=== PATIENT | male | born 1975 ===

== ENCOUNTER 2017-06-18 13:00 | Inpatient (IN) | payer MEDICAID, OTHER ==
[~2017-06-18] VITALS: Ht 180.3 cm; Wt 84.0 kg
[2017-06-18 13:15] VITALS: Ht 180.3 cm; Wt 84.0 kg
[2017-06-18] MEDS ORDERED: SOD CHLORIDE 0.9% 1,000 ML IV STA (13:15)
--- NOTE | 2017-06-18 14:06 | RADRPT ---
PROCEDURE: CT brain without contrast CLINICAL INDICATION: Altered mental status, status post fall TECHNIQUE: CT of the brain without contrast was performed on a multidetector CT scanner. One or mo re of the following dose reduction techniques were used: Automated exposure control, adjustment in m A and / or kV according to patient size, use of iterative reconstructive technique. CTDIvol = 45/44 mGy; DLP = 360/720 mGy-cm. COMPARISON: None available FINDINGS: No acute intracranial hemorrhage is identified. No extra-axial fluid collection is seen. There is no mass effect. No midline shift is identified. Ventricles and sulci are within normal limits for size and configuration. The density of the brain is unremarkable. Perez-white differentiation is preserved. Calvarium and skull base are intact. Mastoid air cells and imaged paranasal sinuses grossly clear. IMPRESSION: No evidence of acute intracranial pathology. RPTAT: HH .Ciro Agosto MD, MD Date Time Electronically viewed and signed by .Ciro Agosto MD, MD on 06/18/2017 14:06 .O/
[2017-06-18 14:16] LABS: ABNORMAL IP MESSAGE 1; HEMATOCRIT 30.5 % (42.0-52.0); MEAN CORPUSCULAR HGB CONC 32.8 g/dl (32.0-37.0); MEAN CORPUSCULAR VOLUME 88.4 fl (82.0-101.0); MEAN PLATELET VOLUME 10.4 fl (7.4-10.4); PLATELET COUNT 84 10^3/UL (140-415); POSITIVE DIFF @See below; RED BLOOD COUNT 3.45 10^6/ul (4.70-6.10); RED CELL DISTRIBUTION WIDTH 12.7 % (11.5-14.5); WHITE BLOOD COUNT 3.4 10^3/ul (4.8-10.8)
--- NOTE | 2017-06-18 14:17 | RADRPT ---
PROCEDURE: CT Cervical Spine. CLINICAL INDICATION: Altered mental status TECHNIQUE: A CT of the cervical spine was performed on a multidetector GE CT scanner utilizing hig h-resolution axial imaging from the skull base through the cervical thoracic junction. Sagittal, co bill, and multiplanar reformatted images were made. CTDI 22.36 mGy and DLP 635.76 mGy-cm. One of the following 3 dose reduction techniques were used during this CT examination: automated exp osure control; adjustment of the mA and /or kV according to patient size; or use of iterative recons truction technique COMPARISON: CT brain same date FINDINGS: There is straightening of the normal lordosis of the cervical spine. The prevertebral soft tissues a nd epiglottis are normal. Preservation of the vertebral body heights and intervertebral disk spaces are noted. No evidence for acute fractures or traumatic subluxations are present. The posterior e lements are intact and well aligned. No significant disk bulge or protrusion is seen. The central canal, subarticular recess and neural foramen are patent. IMPRESSION: 1. No acute fractures or traumatic subluxations. 2. Straightening of the normal cervical lordosis and correlate with muscle spasm. RPTAT: HDC .Liliam Reid MD, MD Date Time Electronically viewed and signed by .Liliam Reid MD, MD on 06/18/2017 14:16 .C/
[2017-06-18 14:28] LABS: ADD UMIC NO; UR ASCORBIC ACID NEGATIVE (NEGATIVE); UR BILIRUBIN (Dip) NEGATIVE (NEGATIVE); UR BLOOD (Dip) NEGATIVE (NEGATIVE); UR CLARITY CLEAR (CLEAR); UR COLOR YELLOW (YELLOW); UR GLUCOSE (Dip) 1+ mg/dL (NEGATIVE); UR KETONES (Dip) NEGATIVE (NEGATIVE); UR LEUKOCYTE ESTERASE (Dip) NEGATIVE Leu/ul (NEGATIVE); UR NITRITE (Dip) NEGATIVE (NEGATIVE); UR SPECIFIC GRAVITY (Dip) 1.006 (1.003-1.030); UR TOTAL PROTEIN (Dip) NEGATIVE (NEGATIVE); UR UROBILINOGEN (Dip) 2+ mg/dL (NEGATIVE)
--- NOTE | 2017-06-18 14:31 | RADRPT ---
PROCEDURE: Chest x-ray CLINICAL INDICATION: Altered level of consciousness TECHNIQUE: Chest single view COMPARISON: None FINDINGS: The heart is normal in size. The pulmonary vessels are normal in caliber. Lung volumes are low with accentuation lung markings. The costophrenic angles are sharp. The visualized bony thorax is unrem arkable. IMPRESSION: No acute cardiopulmonary disease. Low lung volumes RPTAT: HH .Robert Contreras MD, MD Date Time Electronically viewed and signed by .Robert Contreras MD, MD on 06/18/2017 14:30 .W/
--- NOTE | 2017-06-18 14:38 | ERA ---
ER Documentation Chief Complaint Date/Time DATE: 06/18/17 TIME: 14:31 Chief Complaint brought in by RA; ETOH intoxication HPI This is a 42-year-old male with a past medical history of diabetes, hypertension , hyperlipidemia, chronic daily alcohol abuse who is presenting with alcohol intoxication. He was found by bystanders and an ambulance was called. The patient is able to provide his name, and he knows that he is in a hospital, but he does not know the date. He is unable to provide specifics of today, but he does endorse drinking a lot of beer. He also endorses using cocaine recently. The patient is unsure if he could have hit his head or not, but he is not have a headache or vision changes right now. He does not have any chest pain or trouble breathing. He does not have any abdominal pain. He does endorse pain to his left hand. He has no focal deficits. ROS All systems reviewed and are negative except as per history of present illness. Allergies Allergies: Coded Allergies: Unknown: Unable to obtain (Unverified , 06/18/17) PMhx/Soc Medical and Surgical Hx: pt denies Surgical Hx Hx Cardiac Disorders: Yes (HTN, high cholesterol) Hx Psychiatric Problems: No Hx Miscellaneous Medical Probl: Yes (dm2, hepatitis) Hx Alcohol Use: Yes (daily+ today; unable to state how much) Hx Substance Use: Yes (cocaine history) Hx Tobacco Use: No Smoking Status: Unknown if ever smoked Physical Exam Vitals Vital Signs Date Time Temp Pulse Resp B/P Pulse Ox O2 Delivery O2 Flow Rate FiO2 06/18/17 20:11 98.2 103 18 116/73 96 Room Air 06/18/17 18:20 101 20 113/82 93 Room Air 2.0 06/18/17 18:01 99.0 102 16 141/89 96 Room Air 06/18/17 13:15 98.9 117 22 110/63 84 06/18/17 13:15 Nasal Cannula 3 Physical Exam Const: NAD Head: Atraumatic Eyes: Normal Conjunctiva ENT: Normal External Ears, Nose and Mouth. Neck: Full range of motion..~ No meningismus. Resp: Clear to auscultation bilaterally Cardio: Regular rate and rhythm, no murmurs Abd: Soft, non tender, non distended. Normal bowel sounds Skin: No petechiae or rashes Back: No midline or flank tenderness Ext: No cyanosis, edema and pain to the right wrist Neur: Sleeping but arousable, A&Ox2 to person and place, normal strength and sensation Psych: Slowed responses Result Diagram: 06/18/17 1345 06/18/17 1345 Results 24 hrs Laboratory Tests Test 06/18/17 13:45 06/18/17 17:29 White Blood Count 3.410^3/ul Red Blood Count 3.4510^6/ul Hemoglobin 10.0g/dl Hematocrit 30.5% Mean Corpuscular Volume 88.4fl Mean Corpuscular Hemoglobin 29.0pg Mean Corpuscular Hemoglobin Concent 32.8g/dl Red Cell Distribution Width 12.7% Platelet Count 8410^3/UL Mean Platelet Volume 10.4fl Neutrophils % % Segmented Neutrophils % (Manual) 45% Lymphocytes % % Lymphocytes % (Manual) 51% Monocytes % % Monocytes % (Manual) 4% Eosinophils % % Basophils % % Nucleated Red Blood Cells % 0.0/100WBC Neutrophils # (Manual) 10^3/ul Absolute Lymphocytes (Manual) 1.710^3/ul Lymphocytes # 10^3/ul Monocytes # 10^3/ul Absolute Monocytes (Manual) 0.110^3/ul Eosinophils # 10^3/ul Basophils # 10^3/ul Nucleated Red Blood Cells # 10^3/ul Thrombocytosis 1% Platelet Estimate NORMAL Urine Color YELLOW Urine Clarity CLEAR Urine pH 7.0 Urine Specific [place] 1.006 Urine Ketones NEGATIVEmg/dL Urine Nitrite NEGATIVEmg/dL Urine Bilirubin NEGATIVEmg/dL Urine Urobilinogen 2+mg/dL Urine Leukocyte Esterase NEGATIVELeu/ul Urine Hemoglobin NEGATIVEmg/dL Urine Glucose 1+mg/dL Urine Total Protein NEGATIVEmg/dl Sodium Level 151mmol/L Potassium Level 3.5mmol/L Chloride Level 109mmol/L Carbon Dioxide Level 24mmol/L Anion Gap 22 Blood Urea Nitrogen 4mg/dl Creatinine 0.49mg/dl Glucose Level 200mg/dl Calcium Level 8.2mg/dl Total Bilirubin 0.4mg/dl Direct Bilirubin 0.00mg/dl Indirect Bilirubin 0.4mg/dl Aspartate Amino Transf (AST/SGOT) 49IU/L Alanine Aminotransferase (ALT/SGPT) 39IU/L Alkaline Phosphatase 117IU/L Total Protein 7.7g/dl Albumin 3.1g/dl Globulin 4.60g/dl Albumin/Globulin Ratio 0.67 Salicylates Level < 1.0mg/dl Urine Opiates Screen Negative Acetaminophen Level < 10.0ug/ml Urine Barbiturates Negative Urine Amphetamines Screen Negative Urine Benzodiazepines Screen Negative Urine Cocaine Screen Negative Urine Cannabinoids Negative Ethyl Alcohol Level 450.0mg/dl Bedside Glucose 172mg/dL Current Medications Medications (Trade) Dose Ordered Sig/Justin Route PRN Reason Start Time Stop Time Status Last Admin Dose Admin Sodium Chloride (NS) 1,000 ml @ 1,000 mls/hr Q1H STAT IV 06/18/17 13:15 06/18/17 14:14 DC 06/18/17 14:27 Lorazepam (Ativan) 2 mg STK-MED ONCE .ROUTE 06/18/17 17:54 06/18/17 17:55 DC Ondansetron HCl (Zofran Inj) 4 mg BRIDGE ORDER PRN IV NAUSEA AND/OR VOMITING 06/18/17 19:30 06/19/17 19:29 Acetaminophen (Tylenol Tab) 650 mg ER BRIDGE PRN PO MILD PAIN/FEVER 06/18/17 19:30 06/19/17 19:29 Lorazepam (Ativan) 2 mg ONCE ONCE IV 06/18/17 20:30 06/18/17 20:31 DC 06/18/17 21:05 Procedures/MDM The patient's presenting with alcohol intoxication. He does endorse using multiple other medications as well. He does respond to commands, and he does not demonstrate any focal deficits. However, there is a questionable history of whether or not he could have fallen and hit his head. A workup will be performed. Patient's blood work is obtained and reviewed. The patient does have a mild leukopenia, but he is afebrile and I do not suspect an infection at this time. The patient's vital signs are stable. The patient's CMP demonstrates an elevated sodium at 151. It is otherwise unremarkable. The patient's urinalysis shows no signs of infection or hematuria. His UDS was negative. He does have an elevated alcohol level. The patient's CT of the head was read as follows: PROCEDURE: CT brain without contrast CLINICAL INDICATION: Altered mental status, status post fall FINDINGS: No acute intracranial hemorrhage is identified. No extra-axial fluid collection is seen. There is no mass effect. No midline shift is identified. Ventricles and sulci are within normal limits for size and configuration. The density of the brain is unremarkable. Perez-white differentiation is preserved. Calvarium and skull base are intact. Mastoid air cells and imaged paranasal sinuses grossly clear. IMPRESSION: No evidence of acute intracranial pathology. .Ciro Agosto MD, Date Time Electronically viewed and signed by .Ciro Agosto MD, on 06/18/2017 14:[address] of the cervical spine was read as follows: PROCEDURE: CT Cervical Spine. CLINICAL INDICATION: Altered mental status COMPARISON: CT brain same date FINDINGS: There is straightening of the normal lordosis of the cervical spine. The prevertebral soft tissues and epiglottis are normal. Preservation of the vertebral body heights and intervertebral disk spaces are noted. No evidence for acute fractures or traumatic subluxations are present. The posterior elements are intact and well aligned. No significant disk bulge or protrusion is seen. The central canal, subarticular recess and neural foramen are patent. IMPRESSION: 1. No acute fractures or traumatic subluxations. 2. Straightening of the normal cervical lordosis and correlate with muscle spasm. .Liliam Reid MD, Date Time Electronically viewed and signed by .Liliam Reid MD, on 06/18/2017 14: 16 The patient does not endorse any midline tenderness. He does indicate that he has mild right-sided paraspinal discomfort. This could correlate with muscle spasm. The patient's CT head and cervical spine is reassuring. The patient's chest x-ray is as follows: PROCEDURE: Chest x-ray CLINICAL INDICATION: Altered level of consciousness TECHNIQUE: Chest single view COMPARISON: None FINDINGS: The heart is normal in size. The pulmonary vessels are normal in caliber. Lung volumes are low with accentuation lung markings. The costophrenic angles are sharp. The visualized bony thorax is unremarkable. IMPRESSION: No acute cardiopulmonary disease. Low lung volumes .Robert Contreras MD, Date Time Electronically viewed and signed by .Robert Contreras MD, MD on 06/18/2017 14:30 He also had tenderness and swelling of his left hand. The xrays were unremarkable as follows: PROCEDURE: Left wrist radiographs. CLINICAL INDICATION: Left wrist pain. TECHNIQUE: Three views. Frontal, lateral, and oblique. COMPARISON: No prior studies are available for comparison. FINDINGS: There is no fracture or dislocation. The soft tissues are normal. Articular surfaces are intact. There is no lytic or blastic lesion. There is no radiopaque foreign body. IMPRESSION: 1. Normal images of the left wrist. .Epi Burden MD, Date Time Electronically viewed and signed by .Epi Burden MD, on 06/18/2017 20:25 Patient was given IV fluids in the emergency department. Unfortunately, while he was in the ER, he had a seizure. He was given 2 mg of Ativan which resolved the symptoms. However, he was postictal for 30min to one hour. He maintained his oral airway and does not require intubation. He ultimately returned to baseline. However, in the setting of alcohol abuse in addition to an elevated sodium, the decision was made to admit him to the hospital for further evaluation and management. Departure Diagnosis: Primary Impression: Alcoholic intoxication Qualified Code: F10.929 - Alcoholic intoxication with complication Additional Impressions: Seizure Hypernatremia Condition: Serious ANIVAL REEVES MD Jun 18, 2017 14:38
[2017-06-18 14:40] LABS: CANNABINOIDS Negative (NEGATIVE)
[2017-06-18 14:42] LABS: ALANINE AMINOTRANSFERASE 39 IU/L (13-69); ALBUMIN 3.1 g/dl (3.3-4.9); ALBUMIN/GLOBULIN RATIO 0.67; ALKALINE PHOSPHATASE 117 IU/L (42-121); ANION GAP 22 (8-16); ASPARTATE AMINO TRANSFERASE 49 IU/L (15-46); BARBITURATES Negative (NEGATIVE); BENZODIAZEPINES Negative (NEGATIVE); BILIRUBIN,INDIRECT 0.4 mg/dl (0-1.1); BILIRUBIN,TOTAL 0.4 mg/dl (0.2-1.3); BLOOD UREA NITROGEN 4 mg/dl (7-20); CALCIUM 8.2 mg/dl (8.4-10.2); CARBON DIOXIDE 24 mmol/L (21-31); CHLORIDE 109 mmol/L (97-110); COCAINE Negative (NEGATIVE); CREATININE 0.49 mg/dl (0.61-1.24); GLUCOSE 200 mg/dl (70-220); OPIATES Negative (NEGATIVE); POTASSIUM 3.5 mmol/L (3.5-5.1); SODIUM 151 mmol/L (135-144); TOTAL PROTEIN 7.7 g/dl (6.1-8.1)
[2017-06-18 14:43] LABS: ACETAMINOPHEN < 10.0 ug/ml (10.0-30.0); SALICYLATE < 1.0 mg/dl (5.0-30.0)
[2017-06-18 16:05] LABS: GIANT THROMBO% (M) 1 % (0-0); MONOCYTES % (M) 4 % (0-11); PLATELET ESTIMATE NORMAL
[2017-06-18] MEDS ORDERED: LORAZEPAM 2 MG INJ ONE (17:54)
[2017-06-18] MEDS ORDERED: ACETAMINOPHEN 325 MG TAB PO PRN (19:30)
[2017-06-18] MEDS ORDERED: ONDANSETRON 4 MG INJ IV PRN (19:30)
--- NOTE | 2017-06-18 20:26 | RADRPT ---
PROCEDURE: Left wrist radiographs. CLINICAL INDICATION: Left wrist pain. TECHNIQUE: Three views. Frontal, lateral, and oblique. COMPARISON: No prior studies are available for comparison. FINDINGS: There is no fracture or dislocation. The soft tissues are normal. Articular surfaces are intact. There is no lytic or blastic lesion. There is no radiopaque foreign body. IMPRESSION: 1. Normal images of the left wrist. RPTAT: QQ .Epi Burden MD, MD Date Time Electronically viewed and signed by .Epi Burden MD, on 06/18/2017 20:25 .R/
[2017-06-18] MEDS ORDERED: LORAZEPAM 2 MG INJ IV ONE (20:30)
[2017-06-19] VITALS (7 sets, daily range): BP systolic 124–127; BP diastolic 77–80; PULSE 90–101; RESP 20; TEMP 97.9
[2017-06-19] MEDS ORDERED: LORAZEPAM 2 MG INJ IV ONE (07:30)
[2017-06-19] MEDS ORDERED: ONDANSETRON 4 MG INJ IV PRN (08:30)
[2017-06-19] MEDS: SOD CHLORIDE 0.9% 1,000 ML IV SCH ×2 (08:30→16:50)
--- NOTE | 2017-06-19 09:37 | HP ---
DATE OF ADMISSION: 06/18/2017 PRESENTING COMPLAINT: Altered mental status. HISTORY OF PRESENT ILLNESS: The patient was brought in by ambulance after bystanders had called because he was found to be acutely intoxicated. When he came in, he was oriented only to himself and could not give a history. At this time, he is feeling much better. He knows where he is and he is able to say that he feels better. He does feel sick he says and he is quit shaky. He does not remember the circumstances that brought him to the hospital. He does note that he drinks a lot of alcohol and also smokes tobacco. Other than that, he has not other concerns. He had no chest pain. He has no shortness of breath. He had some pain in his left hand, was worked up with a wrist x- ray, which came back negative. REVIEW OF SYSTEMS: Twelve point review of system was done. Pertinent findings as noted. PAST MEDICAL HISTORY: Positive for: 1. Hypertension. 2. Diabetes mellitus. 3. Dyslipidemia. PAST SURGICAL HISTORY: Patient denies. ALLERGIES: NO KNOWN DRUG ALLERGIES. SOCIAL HISTORY: Patient continued heavy alcohol. Also smokes tobacco. Also, does cocaine use. FAMILY HISTORY: Noncontributory. REVIEW OF SYSTEMS: A 12 point review of system was done. Pertinent findings as noted in HPI. HOMES MEDICATIONS: These are not available at this time, but once available will be reviewed and reconciled. PHYSICAL EXAMINATION: VITAL SIGNS: Temperature 98.5, pulse 100, respirations 20, blood pressure 123/80, saturation 95 percent on oxygen nasal cannula 2 L a minute. GENERAL: At this time, the patient is alert and oriented. He is in no distress. Head is normocephalic. There is no evidence of trauma. Pupils are equal, round, reactive with no scleral jaundice. Mucous membranes moist. Posterior pharynx free of exudate. NECK: Supple. CHEST: Clear to auscultation. CARDIOVASCULAR: S1 and S2. No murmurs. ABDOMEN: Soft, nontender, nondistended. Normoactive bowel sounds. MUSCULOSKELETAL: Patient is having a lot of tremors and shaking. Other than that, he has no edema. SKIN: Devoid of rash or jaundice. LAB VALUES: His sodium is 151 when he came in. He had an anion gap of 22, BUN and creatinine within normal range. AST is 49. WBC count was 3.4, hemoglobin is 10. Other than that urine tox screen was negative. But his alcohol level is very elevated. IMAGING STUDIES: A chest x-ray showed no active cardiopulmonary disease. CT scan of the chest showed no acute fractures, but there was some cervical muscle spasm. Brain CT showed no acute intracranial pathology and a wrist x-ray was normal as well. ASSESSMENT: A 42-year-old male admitted for: 1. Acute alcoholic intoxication now with signs consents for possible withdrawal. 2. Pancytopenia secondary to chronic alcohol use. PLAN: Is aggressive hydration, benzodiazepine therapy, therapy and essentially when the patient feels more stable, I believe he will be stable for discharge. He has been counseled on the need to stop abusing alcohol, tobacco and drugs. We will have a social and human services assistant visit him and provide him with resources that may help with this. For prophylaxis, he will be on SCDs and PPI p.o. and we will also put in place fall precautions. Dictated By: Nolan Dickson MD /rupal/shoaib /Document#: [id number]
[2017-06-19] MEDS ORDERED: DEXTROSE 50% 50 ML SYRINGE IV PRN ×2 (10:30)
[2017-06-19] MEDS ORDERED: GLUCAGON 1 MG INJ IM PRN (10:30)
[2017-06-19] MEDS ORDERED: GLUCOSE GEL 15 GRAM TUBE PO PRN ×2 (10:30)
[2017-06-19] MEDS ORDERED: GLUCOSE GEL 15 GRAM TUBE BUCCAL PRN (10:30)
[2017-06-19 10:54] LABS: CHOL/HDL RATIO 3.7 RATIO; CHOLESTEROL 138 mg/dl (100-200); HDL CHOLESTEROL 37 mg/dl (27-67); MAGNESIUM 1.6 mg/dl (1.7-2.5); PHOSPHORUS 3.9 mg/dl (2.5-4.9); TRIGLYCERIDES 120 mg/dl (0-149)
[2017-06-19 10:59] LABS: INR 1.49; PROTIME 18.1 Sec (12.2-14.2); PT RATIO 1.4
[2017-06-19 11:00] LABS: PARTIAL THROMBOPLASTIN TIME 37.1 Sec (25.0-35.0)
[2017-06-19] MEDS: CHLORDIAZEPOXIDE 25 MG CAP PO SCH ×3 (11:32→21:47)
[2017-06-19] MEDS: MULTIVITAMINS 10 ML, THIAMINE 100 MG, FOLIC ACID 1 MG in SOD CHLORIDE 0.9% 1,000 ML IVPB SCH (11:32)
[2017-06-19 11:43] LABS: HEPATITIS B CORE ANTIBODY NEGATIVE (NEGATIVE)
[2017-06-19] MEDS: INSULIN ASPART [NOVOLOG] 3 ML PEN SC SCH ×3 (12:00→21:00)
[2017-06-19] MEDS: LORAZEPAM 2 MG INJ IV PRN (14:09)
--- NOTE | 2017-06-19 18:36 | PN ---
Date/Time of Note Date/Time of Note DATE: 06/19/17 TIME: 18:35 Assessment/Plan VTE Prophylaxis VTE Prophylaxis Intervention: contraindicated VTE Contraindication Reason: blood coagulation disorder Assessment/Plan Chief Complaint/Hosp Course Objective: Events noted Objective: Vital signs stable No pallor icterus Regular Clear Benign No edema Assessment and plan 1. Acute alcoholic intoxication/possible withdrawal; stable continue fluids Ativan B1 Pepcid. 2. Alcohol abuse. Social service assistance appreciated 3. Depression 4. Alcohol associated bone marrow suppression 5. Chronic diabetes/dyslipidemia/hypertension/metabolic syndrome 6. Tobacco abuse Problems: Exam/Review of Systems Vital Signs Vitals Vital Signs Date Time Temp Pulse Resp B/P Pulse Ox O2 Delivery O2 Flow Rate FiO2 06/19/17 16:00 90 06/19/17 13:25 98.3 20 127/80 97 Room Air 06/19/17 08:00 2.0 Results Result Diagram: 06/18/17 1345 06/18/17 1345 Results 24 hrs Laboratory Tests Test 06/19/17 07:32 06/19/17 10:04 06/19/17 13:21 06/19/17 18:08 Bedside Glucose 135 172 141 Prothrombin Time 18.1 H Prothrombin Time Ratio 1.4 INR International Normalized Ratio 1.49 Activated Partial Thromboplast Time 37.1 H Hemoglobin A1c 8.4 H Lactic Acid Level 3.3 *H Phosphorus Level 3.9 Magnesium Level 1.6 L Triglycerides Level 120 Cholesterol Level 138 LDL Cholesterol, Calculated 77 HDL Cholesterol 37 Cholesterol/HDL Ratio 3.7 Hepatitis B Surface Antibody NEGATIVE Hepatitis B Core Total Antibody NEGATIVE Hepatitis C Antibody NEGATIVE Medications Medications Current Medications Chlordiazepoxide 25 mg 25 mg TID PO Last administered on 06/19/17 14:49; Admin Dose 25 MG; Start 06/19/17 at 09:00 Multivitamins 10 ml/Thiamine HCl 100 mg/Folic Acid 1 mg/Sodium Chloride 1,011.2 ml @ 125 mls/ hr DAILY@09 IVPB Last administered on 06/19/17 11:32; Admin Dose 125 MLS/HR; Start 06/19/17 at 11:00 Sodium Chloride (NS) 1,000 ml @ 125 mls/hr Q8H IV Last administered on 16:50; Admin Dose 125 MLS/HR; Start 06/19/17 at 08:30 Lorazepam (Ativan) 1 mg Q6H PRN IV agitation Last administered on 06/19/17t 14: 09; Admin Dose 1 MG; Start 06/19/17 at 08:30 Pantoprazole (Protonix Tab) 40 mg DAILY@06 PO ; Start 06/20/17 at 06:00 Ondansetron HCl (Zofran Inj) 4 mg Q6H PRN IV NAUSEA AND/OR VOMITING; Start at 08:30 Diagnostic Test (Pha) (Accu-Chek) 1 ea 02 XX ; Start 06/20/17 at 02:00 Miscellaneous Information 1 ea NOTE XX ; Start 06/19/17 at 10:30 Glucose (Glutose) 15 gm Q15M PRN PO DECREASED GLUCOSE; Start 06/19/17 at 10:30 Glucose (Glutose) 22.5 gm Q15M PRN PO DECREASED GLUCOSE; Start 06/19/17 at 10: 30 Dextrose (D50w Syringe) 25 ml Q15M PRN IV DECREASED GLUCOSE; Start 06/19/17 at 10:30 Dextrose (D50w Syringe) 50 ml Q15M PRN IV DECREASED GLUCOSE; Start 06/19/17 at 10:30 Glucagon (Glucagen) 1 mg Q15M PRN IM DECREASED GLUCOSE; Start 06/19/17 at 10:30 Glucose (Glutose) 15 gm Q15M PRN BUCCAL DECREASED GLUCOSE; Start 06/19/17 at 10 :30 EDGAR MALLOY MD Jun 19, 2017 18:36
[2017-06-19] MEDS ORDERED: MAGNESIUM SULFATE 3 GM in SOD CHLORIDE 0.9% 100 ML IVPB ONE (19:00)
[2017-06-19] MEDS ORDERED: LORAZEPAM 2 MG INJ IM PRN (19:30)
[2017-06-20] VITALS (11 sets, daily range): BP systolic 119–139; BP diastolic 70–81; PULSE 83–100; RESP 17–19
[2017-06-20] MEDS: LORAZEPAM 0.5 MG TAB PO SCH ×4 (00:01→21:00)
[2017-06-20] MEDS: SOD CHLORIDE 0.9% 1,000 ML IV SCH ×4 (00:01→21:00)
[2017-06-20] MEDS: ACCU-CHEK XX SCH (00:25)
[2017-06-20] MEDS: PANTOPRAZOLE (EC) 40 MG TAB PO SCH (06:24)
[2017-06-20 07:42] LABS: ABNORMAL IP MESSAGE 1; BASOPHILS % 0.8 % (0.0-2.0); EOSINOPHILS % 0.8 % (0.0-7.0); HEMATOCRIT 30.6 % (42.0-52.0); HEMOGLOBIN 10.3 g/dl (14.0-18.0); LYMPHOCYTES # 0.9 10^3/ul (0.8-2.9); LYMPHOCYTES % 37.2 % (15.0-51.0); MEAN CORPUSCULAR HEMOGLOBIN 29.9 pg (29.0-33.0); MEAN CORPUSCULAR HGB CONC 33.7 g/dl (32.0-37.0); MONOCYTE # 0.3 10^3/ul (0.3-0.9); MONOCYTES % 10.3 % (0.0-11.0); NEUTROPHILS % 50.5 % (39.0-77.0); POSITIVE DIFF @See below; RED BLOOD COUNT 3.44 10^6/ul (4.70-6.10); RED CELL DISTRIBUTION WIDTH 12.5 % (11.5-14.5); WHITE BLOOD COUNT 2.5 10^3/ul (4.8-10.8)
[2017-06-20 07:53] LABS: PLATELET COUNT 80 10^3/UL (140-415)
[2017-06-20] MEDS: INSULIN ASPART [NOVOLOG] 3 ML PEN SC SCH ×4 (07:55→20:59)
[2017-06-20 08:06] LABS: INR 1.49; PROTIME 18.1 Sec (12.2-14.2); PT RATIO 1.4
[2017-06-20 08:22] LABS: ALBUMIN 2.8 g/dl (3.3-4.9); ALBUMIN/GLOBULIN RATIO 0.65; BILIRUBIN,INDIRECT 1.1 mg/dl (0-1.1); BILIRUBIN,TOTAL 1.1 mg/dl (0.2-1.3); CREATININE 0.42 mg/dl (0.61-1.24); POTASSIUM 3.5 mmol/L (3.5-5.1); TOTAL PROTEIN 7.1 g/dl (6.1-8.1)
[2017-06-20 08:23] LABS: MAGNESIUM 1.7 mg/dl (1.7-2.5)
[2017-06-20 08:25] LABS: TROPONIN-I < 0.012 ng/ml (0.00-0.12)
[2017-06-20] MEDS: MULTIVITAMINS 10 ML, THIAMINE 100 MG, FOLIC ACID 1 MG in SOD CHLORIDE 0.9% 1,000 ML IVPB SCH (10:14)
[2017-06-20] MEDS: LORAZEPAM 2 MG INJ IV PRN (10:14)
[2017-06-20] MEDS: CHLORDIAZEPOXIDE 25 MG CAP PO SCH ×3 (10:14→20:59)
[2017-06-20] MEDS: NICOTINE (14 MG/24 HR) PATCH TRANSDERM SCH (10:15)
--- NOTE | 2017-06-20 12:44 | PN ---
Date/Time of Note Date/Time of Note DATE: 06/20/17 TIME: 12:42 Assessment/Plan VTE Prophylaxis VTE Prophylaxis Intervention: LMWH Lines/Catheters IV Catheter Type (from Nrs): Peripheral IV Urinary Cath still in place: No Assessment/Plan Chief Complaint/Hosp Course subjective: 06/19: Events noted 06/20: No dyspnea nausea vomiting tongue bite seizure. Bilateral heel pain without any known aggravating or relieving factors. Denies any injury. O: Vss/sr No pallor/ icterus Reg Clear Benign No edema A/P 1. Acute alcoholic intoxication/possible withdrawal; stable cont fluids Ativan B1 Pepcid. 2. Alcohol abuse. Social service assistance appreciated 3. Depression 4. Alcohol associated bone marrow suppression 5. Chronic diabetes(8.4) /dyslipidemia/hypertension/metabolic syndrome 6. Tobacco abuse Problems: Exam/Review of Systems Vital Signs Vitals Vital Signs Date Time Temp Pulse Resp B/P Pulse Ox O2 Delivery O2 Flow Rate FiO2 06/20/17 12:15 85 06/20/17 11:03 98.6 18 119/75 75 06/20/17 07:30 Nasal Cannula 2.0 Intake and Output 06/19/17 06/19/17 06/20/17 14:59 22:59 06:59 Intake Total 1700 ml Output Total 500 ml Balance -500 ml 1700 ml Results Result Diagram: 06/20/17 0649 06/20/17 0649 Results 24 hrs Laboratory Tests Test 06/19/17 13:21 06/19/17 18:08 06/19/17 21:40 06/20/17 06:49 Bedside Glucose 172 141 175 White Blood Count 2.5 #L Red Blood Count 3.44 L Hemoglobin 10.3 L Hematocrit 30.6 L Mean Corpuscular Volume 89.0 Mean Corpuscular Hemoglobin 29.9 Mean Corpuscular Hemoglobin Concent 33.7 Red Cell Distribution Width 12.5 Platelet Count 80 L Mean Platelet Volume 12.0 H Neutrophils % 50.5 Lymphocytes % 37.2 Monocytes % 10.3 Eosinophils % 0.8 Basophils % 0.8 Nucleated Red Blood Cells % 0.0 Neutrophils # (Manual) 1.3 L Lymphocytes # 0.9 Monocytes # 0.3 Eosinophils # 0.0 Basophils # 0.0 Nucleated Red Blood Cells # 0.0 Prothrombin Time 18.1 H Prothrombin Time Ratio 1.4 INR International Normalized Ratio 1.49 Sodium Level 144 Potassium Level 3.5 Chloride Level 109 Carbon Dioxide Level 23 Anion Gap 16 Blood Urea Nitrogen 5 L Creatinine 0.42 L Glucose Level 111 # Calcium Level 8.0 L Phosphorus Level 4.0 Magnesium Level 1.7 Total Bilirubin 1.1 Direct Bilirubin 0.00 Indirect Bilirubin 1.1 Aspartate Amino Transf (AST/SGOT) 47 H Alanine Aminotransferase (ALT/SGPT) 30 Alkaline Phosphatase 108 Troponin I < 0.012 Total Protein 7.1 Albumin 2.8 L Globulin 4.30 H Albumin/Globulin Ratio 0.65 Test 06/20/17 08:07 06/20/17 12:39 Bedside Glucose 115 147 Medications Medications Current Medications Multivitamins 10 ml/Thiamine HCl 100 mg/Folic Acid 1 mg/Sodium Chloride 1,011.2 ml @ 125 mls/ hr DAILY@09 IVPB Last administered on 06/20/17 10:14; Admin Dose 125 MLS/HR; Start 06/19/17 at 11:00 Sodium Chloride (NS) 1,000 ml @ 125 mls/hr Q8H IV Last administered on 00:01; Admin Dose 125 MLS/HR; Start 06/19/17 at 08:30 Lorazepam (Ativan) 1 mg Q6H PRN IV agitation Last administered on 06/20/17 10: 14; Admin Dose 1 MG; Start 06/19/17 at 08:30 Pantoprazole (Protonix Tab) 40 mg DAILY@06 PO Last administered on 06/20/17 06 :24; Admin Dose 40 MG; Start 06/20/17 at 06:00 Ondansetron HCl (Zofran Inj) 4 mg Q6H PRN IV NAUSEA AND/OR VOMITING; Start at 08:30 Diagnostic Test (Pha) (Accu-Chek) 1 ea 02 XX ; Start 06/20/17 at 02:00 Miscellaneous Information 1 ea NOTE XX ; Start 06/19/17 at 10:30 Glucose (Glutose) 15 gm Q15M PRN PO DECREASED GLUCOSE; Start 06/19/17 at 10:30 Glucose (Glutose) 22.5 gm Q15M PRN PO DECREASED GLUCOSE; Start 06/19/17 at 10: 30 Dextrose (D50w Syringe) 25 ml Q15M PRN IV DECREASED GLUCOSE; Start 06/19/17 at 10:30 Dextrose (D50w Syringe) 50 ml Q15M PRN IV DECREASED GLUCOSE; Start 06/19/17 at 10:30 Glucagon (Glucagen) 1 mg Q15M PRN IM DECREASED GLUCOSE; Start 06/19/17 at 10:30 Glucose (Glutose) 15 gm Q15M PRN BUCCAL DECREASED GLUCOSE; Start 06/19/17 at 10 :30 Nicotine (Nicoderm 14 Mg/ 24hr) 1 patch DAILY TRANSDERM Last administered on 10:15; Admin Dose 1 PATCH; Start 06/20/17 at 09:00 Lorazepam (Ativan) 1 mg Q8 PO Last administered on 06/20/17 06:24; Admin Dose 1 MG; Start 06/19/17 at 22:00 Lorazepam (Ativan) 1 mg Q1H PRN IM ETOH WITHDRAWAL SYMPTOMS Last administered on 06/19/17 20:18; Admin Dose 1 MG; Start 06/19/17 at 19:30; Stop 06/22/17 at 19:00 Chlordiazepoxide (Librium) 50 mg TID PO Last administered on 06/20/17 10:14; Admin Dose 50 MG; Start 06/19/17 at 21:00; Stop 06/22/17 at 19:00 EDGAR MALLOY MD Jun 20, 2017 12:44
[2017-06-20] MEDS: POTASSIUM CHLORIDE 20 MEQ POWDER FOR ORAL SOLN PO SCH (13:54)
[2017-06-20] MEDS: GABAPENTIN 100 MG CAP PO SCH ×2 (13:54→20:58)
[2017-06-21] VITALS (11 sets, daily range): BP systolic 109–123; BP diastolic 66–82; PULSE 92–100; RESP 17–20
[2017-06-21] MEDS ORDERED: ACETAMINOPHEN 325 MG TAB PO PRN (02:00)
[2017-06-21] MEDS: ACCU-CHEK XX SCH (02:00)
[2017-06-21] MEDS: PANTOPRAZOLE (EC) 40 MG TAB PO SCH (06:25)
[2017-06-21] MEDS: LORAZEPAM 0.5 MG TAB PO SCH ×3 (06:25→22:34)
[2017-06-21] MEDS: INSULIN ASPART [NOVOLOG] 3 ML PEN SC SCH ×4 (08:16→20:33)
[2017-06-21] MEDS: SOD CHLORIDE 0.9% 1,000 ML IV SCH ×2 (09:12→16:30)
[2017-06-21] MEDS: GABAPENTIN 100 MG CAP PO SCH ×3 (09:13→20:34)
[2017-06-21] MEDS: MULTIVITAMINS 10 ML, THIAMINE 100 MG, FOLIC ACID 1 MG in SOD CHLORIDE 0.9% 1,000 ML IVPB SCH (09:13)
[2017-06-21] MEDS: NICOTINE (14 MG/24 HR) PATCH TRANSDERM SCH (09:13)
[2017-06-21] MEDS: POTASSIUM CHLORIDE 20 MEQ POWDER FOR ORAL SOLN PO SCH (09:13)
[2017-06-21] MEDS: CHLORDIAZEPOXIDE 25 MG CAP PO SCH ×3 (09:13→20:34)
--- NOTE | 2017-06-21 14:04 | PN ---
Date/Time of Note Date/Time of Note DATE: 06/21/17 TIME: 14:03 Assessment/Plan VTE Prophylaxis VTE Prophylaxis Intervention: LMWH Lines/Catheters IV Catheter Type (from Nrs): Peripheral IV Urinary Cath still in place: No Assessment/Plan Chief Complaint/Hosp Course s: 06/19: Events noted 06/20: No dyspnea nausea vomiting tongue bite seizure. Bilateral heel pain without any known aggravating or relieving factors. Denies any injury. 06/21: No events. Anticipate discharge tomorrow. O: Vss/sr No pallor Reg Clear Benign No edema A/P 1. Acute alcoholic intoxication/possible withdrawal; stable, cont fluids Ativan B1 Pepcid. 2. Alcohol abuse. Social service assistance appreciated. Anticipate discharge . 3. Depression 4. Alcohol associated bone marrow suppression 5. Chronic diabetes(8.4) /dyslipidemia/hypertension/metabolic syndrome 6. Tobacco abuse? Problems: Exam/Review of Systems Vital Signs Vitals Vital Signs Date Time Temp Pulse Resp B/P Pulse Ox O2 Delivery O2 Flow Rate FiO2 06/21/17 12:34 96 06/21/17 12:06 98.6 18 119/81 95 06/20/17 07:30 Nasal Cannula 2.0 Intake and Output 06/20/17 06/20/17 06/21/17 15:00 23:00 07:00 Intake Total 1000 ml 1750 ml Output Total 2000 ml Balance 1000 ml -250 ml Results Result Diagram: 06/20/17 0649 06/20/17 0649 Results 24 hrs Laboratory Tests Test 06/20/17 17:37 06/20/17 20:53 06/21/17 08:13 06/21/17 11:34 Bedside Glucose 125 153 147 201 Medications Medications Current Medications Multivitamins 10 ml/Thiamine HCl 100 mg/Folic Acid 1 mg/Sodium Chloride 1,011.2 ml @ 125 mls/ hr DAILY@09 IVPB Last administered on 06/21/17 09:13; Admin Dose 125 MLS/HR; Start 06/19/17 at 11:00 Sodium Chloride (NS) 1,000 ml @ 125 mls/hr Q8H IV Last administered on 09:12; Admin Dose 125 MLS/HR; Start 06/19/17 at 08:30 Lorazepam (Ativan) 1 mg Q6H PRN IV agitation Last administered on 06/20/17 10: 14; Admin Dose 1 MG; Start 06/19/17 at 08:30 Pantoprazole (Protonix Tab) 40 mg DAILY@06 PO Last administered on 06/21/17 06 :25; Admin Dose 40 MG; Start 06/20/17 at 06:00 Ondansetron HCl (Zofran Inj) 4 mg Q6H PRN IV NAUSEA AND/OR VOMITING; Start at 08:30 Diagnostic Test (Pha) (Accu-Chek) 1 ea 02 XX ; Start 06/20/17 at 02:00 Miscellaneous Information 1 ea NOTE XX ; Start 06/19/17 at 10:30 Glucose (Glutose) 15 gm Q15M PRN PO DECREASED GLUCOSE; Start 06/19/17 at 10:30 Glucose (Glutose) 22.5 gm Q15M PRN PO DECREASED GLUCOSE; Start 06/19/17 at 10: 30 Dextrose (D50w Syringe) 25 ml Q15M PRN IV DECREASED GLUCOSE; Start 06/19/17 at 10:30 Dextrose (D50w Syringe) 50 ml Q15M PRN IV DECREASED GLUCOSE; Start 06/19/17 at 10:30 Glucagon (Glucagen) 1 mg Q15M PRN IM DECREASED GLUCOSE; Start 06/19/17 at 10:30 Glucose (Glutose) 15 gm Q15M PRN BUCCAL DECREASED GLUCOSE; Start 06/19/17 at 10 :30 Nicotine (Nicoderm 14 Mg/ 24hr) 1 patch DAILY TRANSDERM Last administered on 09:13; Admin Dose 1 PATCH; Start 06/20/17 at 09:00 Lorazepam (Ativan) 1 mg Q1H PRN IM ETOH WITHDRAWAL SYMPTOMS Last administered on 06/19/17 20:18; Admin Dose 1 MG; Start 06/19/17 at 19:30; Stop 06/22/17 at 19:00 Chlordiazepoxide (Librium) 50 mg TID PO Last administered on 06/21/17 13:55; Admin Dose 50 MG; Start 06/19/17 at 21:00; Stop 06/22/17 at 19:00 Potassium Chloride (Potassium Chloride Pwd/Soln) 40 meq DAILY PO Last administered on 06/21/17 09:13; Admin Dose 40 MEQ; Start 06/20/17 at 13:00 Gabapentin (Neurontin) 100 mg TID PO Last administered on 06/21/17 13:55; Admin Dose 100 MG; Start 06/20/17 at 13:00 Lorazepam (Ativan) 2 mg Q8 PO Last administered on 06/21/17 13:55; Admin Dose 2 MG; Start 06/20/17 at 14:00 Acetaminophen (Tylenol Tab) 650 mg Q6H PRN PO PAIN AND OR ELEVATED TEMP; Start 06/21/17 at 02:00 EDGAR MALLOY MD Jun 21, 2017 14:04
[2017-06-21 14:45] LABS: ABNORMAL IP MESSAGE 1; BASOPHILS % 0.4 % (0.0-2.0); EOSINOPHILS # 0.1 10^3/ul (0.0-0.5); EOSINOPHILS % 1.8 % (0.0-7.0); HEMATOCRIT 31.2 % (42.0-52.0); HEMOGLOBIN 10.5 g/dl (14.0-18.0); LYMPHOCYTES # 0.8 10^3/ul (0.8-2.9); LYMPHOCYTES % 30.1 % (15.0-51.0); MEAN CORPUSCULAR HEMOGLOBIN 29.5 pg (29.0-33.0); MEAN CORPUSCULAR HGB CONC 33.7 g/dl (32.0-37.0); MEAN CORPUSCULAR VOLUME 87.6 fl (82.0-101.0); MEAN PLATELET VOLUME 11.8 fl (7.4-10.4); MONOCYTE # 0.2 10^3/ul (0.3-0.9); MONOCYTES % 8.6 % (0.0-11.0); NEUTROPHILS % 58.4 % (39.0-77.0); PLATELET COUNT 60 10^3/UL (140-415); POSITIVE DIFF @See below; RED BLOOD COUNT 3.56 10^6/ul (4.70-6.10); RED CELL DISTRIBUTION WIDTH 12.4 % (11.5-14.5); WHITE BLOOD COUNT 2.8 10^3/ul (4.8-10.8)
[2017-06-21 15:04] LABS: ALBUMIN 2.7 g/dl (3.3-4.9); ALBUMIN/GLOBULIN RATIO 0.6; BILIRUBIN,INDIRECT 0.6 mg/dl (0-1.1); BILIRUBIN,TOTAL 0.6 mg/dl (0.2-1.3); CALCIUM 8.5 mg/dl (8.4-10.2); CREATININE 0.42 mg/dl (0.61-1.24); POTASSIUM 3.8 mmol/L (3.5-5.1); TOTAL PROTEIN 7.2 g/dl (6.1-8.1)
--- NOTE | 2017-06-21 16:22 | PDOCDIS ---
Discharge Instructions DIAGNOSIS Discharge Diagnosis anxiety/ depression CONDITION Patient Condition: Stable HOME CARE INSTRUCTIONS: Special Diet: Diabetic diet ACTIVITY: Activity Restrictions: Slowly Increase Activity Do not Drive FOLLOW UP/APPOINTMENTS Follow-up Plan primary 1wk EDGAR MALLOY MD Jun 21, 2017 16:22
[2017-06-21] MEDS ORDERED: GABA100C14 PO (16:26)
[2017-06-21] MEDS ORDERED: THIA100T10 PO (16:26)
[2017-06-21] MEDS ORDERED: POTA20PA23 PO (16:26)
--- NOTE | 2017-06-21 16:29 | DS ---
Date/Time of Note Date/Time of Note DATE: 06/21/17 TIME: 16:26 Discharge Summary Admission/Discharge Info Admit Date/Time Jun 18, 2017 at 19:16 Discharge Date/Time Discharge Diagnosis anxiety/ depression Patient Condition: Stable Consults none Procedures none Hx of Present Illness Admitted with alcohol intoxication depression. Seen by social service. Offered placement as he is homeless. Ruled out for arrhythmias, no evidence of seizure. Has no ideation. Appreciate social service assistance. Not sure if he wants to entertain placement options. Probably will go home/ back to his car. Presently stable and fit for discharge. Hospital Course S: 06/19: Events noted 06/20: No dyspnea nausea vomiting tongue bite seizure. Bilateral heel pain without any known aggravating or relieving factors. Denies any injury. 06/21: No events. Anticipate discharge tomorrow. O: Vss/sr No pallor Reg Clear Benign No edema A/P 1. Acute alcoholic intoxication/possible withdrawal; stable, cont fluids Ativan B1 Pepcid. 2. Alcohol abuse. Social service assistance appreciated. Anticipate discharge . 3. Depression 4. Alcohol associated bone marrow suppression 5. Chronic diabetes(8.4) /dyslipidemia/hypertension/metabolic syndrome 6. Tobacco abuse? Home Meds Active Scripts Thiamine* (Thiamine*) 100 Mg Tablet, 100 MG PO DAILY for 30 Days, #30 BOX 2 Refills Prov:EDGAR MALLOY MD 06/21/17 Potassium Chloride (Potassium Chloride) 20 Meq Packet, 40 MEQ PO DAILY for 5 Days, #5 PACKET Prov:EDGAR MALLOY MD 06/21/17 Gabapentin* (Gabapentin*) 100 Mg Capsule, 100 MG PO TID for 10 Days, #30 CAP 1 Refill leg foot pains Prov:EDGAR MALLOY MD 06/21/17 Primary Care Provider Care Physician No Primary Pending Labs Laboratory Tests Test 06/20/17 17:37 06/20/17 20:53 06/21/17 08:13 06/21/17 11:34 Bedside Glucose 125mg/dL (70-220) 153mg/dL (70-220) 147mg/dL (70-220) 201mg/dL (70-220) Test 06/21/17 14:20 White Blood Count 2.810^3/ul (4.8-10.8) Red Blood Count 3.5610^6/ul (4.70-6.10) Hemoglobin 10.5g/dl (14.0-18.0) Hematocrit 31.2% (42.0-52.0) Mean Corpuscular Volume 87.6fl (82.0-101.0) Mean Corpuscular Hemoglobin 29.5pg (29.0-33.0) Mean Corpuscular Hemoglobin Concent 33.7g/dl (32.0-37.0) Red Cell Distribution Width 12.4% (11.5-14.5) Platelet Count 6010^3/UL (140-415) Mean Platelet Volume 11.8fl (7.4-10.4) Neutrophils % 58.4% (39.0-77.0) Lymphocytes % 30.1% (15.0-51.0) Monocytes % 8.6% (0.0-11.0) Eosinophils % 1.8% (0.0-7.0) Basophils % 0.4% (0.0-2.0) Nucleated Red Blood Cells % 0.0/100WBC (0.0-0.0) Neutrophils # (Manual) 1.610^3/ul (1.7-7.5) Lymphocytes # 0.810^3/ul (0.8-2.9) Monocytes # 0.210^3/ul (0.3-0.9) Eosinophils # 0.110^3/ul (0.0-0.5) Basophils # 0.010^3/ul (0.0-0.1) Nucleated Red Blood Cells # 0.010^3/ul (0.0-0.0) Sodium Level 140mmol/L (135-144) Potassium Level 3.8mmol/L (3.5-5.1) Chloride Level 107mmol/L (97-110) Carbon Dioxide Level 23mmol/L (21-31) Anion Gap 14 (8-16) Blood Urea Nitrogen 3mg/dl (7-20) Creatinine 0.42mg/dl (0.61-1.24) Glucose Level 202mg/dl (70-220) Calcium Level 8.5mg/dl (8.4-10.2) Total Bilirubin 0.6mg/dl (0.2-1.3) Direct Bilirubin 0.00mg/dl (0.00-0.20) Indirect Bilirubin 0.6mg/dl (0-1.1) Aspartate Amino Transf (AST/SGOT) 36IU/L (15-46) Alanine Aminotransferase (ALT/SGPT) 26IU/L (13-69) Alkaline Phosphatase 125IU/L (42-121) Total Protein 7.2g/dl (6.1-8.1) Albumin 2.7g/dl (3.3-4.9) Globulin 4.50g/dl (1.3-3.2) Albumin/Globulin Ratio 0.60 EDGAR MALLOY MD Jun 21, 2017 16:29
[2017-06-21] MEDS ORDERED: LORAZEPAM 2 MG INJ IM PRN (21:00)
[2017-06-22] MEDS: SOD CHLORIDE 0.9% 1,000 ML IV SCH ×3 (00:29→17:28)
[2017-06-22] MEDS: ACCU-CHEK XX SCH (02:00)
[2017-06-22] MEDS: PANTOPRAZOLE (EC) 40 MG TAB PO SCH (06:12)
[2017-06-22] MEDS: LORAZEPAM 0.5 MG TAB PO SCH ×3 (06:12→21:17)
[2017-06-22 07:20] VITALS: BP 118/81; RESP 20
[2017-06-22 08:19] LABS: ABNORMAL IP MESSAGE 1; BASOPHILS % 0.3 % (0.0-2.0); EOSINOPHILS # 0.1 10^3/ul (0.0-0.5); EOSINOPHILS % 1.6 % (0.0-7.0); HEMATOCRIT 29.6 % (42.0-52.0); HEMOGLOBIN 9.9 g/dl (14.0-18.0); MEAN CORPUSCULAR HEMOGLOBIN 29.1 pg (29.0-33.0); MEAN CORPUSCULAR HGB CONC 33.4 g/dl (32.0-37.0); MEAN CORPUSCULAR VOLUME 87.1 fl (82.0-101.0); MONOCYTE # 0.3 10^3/ul (0.3-0.9); MONOCYTES % 8.6 % (0.0-11.0); NEUTROPHILS % 56.2 % (39.0-77.0); PLATELET COUNT 63 10^3/UL (140-415); POSITIVE DIFF @See below; RED CELL DISTRIBUTION WIDTH 12.7 % (11.5-14.5); WHITE BLOOD COUNT 3.2 10^3/ul (4.8-10.8)
[2017-06-22] MEDS: CHLORDIAZEPOXIDE 25 MG CAP PO SCH ×2 (08:19→11:56)
[2017-06-22] MEDS: GABAPENTIN 100 MG CAP PO SCH ×3 (08:19→21:17)
[2017-06-22] MEDS: POTASSIUM CHLORIDE 20 MEQ POWDER FOR ORAL SOLN PO SCH (08:20)
[2017-06-22] MEDS: NICOTINE (14 MG/24 HR) PATCH TRANSDERM SCH (08:20)
[2017-06-22] MEDS: MULTIVITAMINS 10 ML, THIAMINE 100 MG, FOLIC ACID 1 MG in SOD CHLORIDE 0.9% 1,000 ML IVPB SCH (08:53)
[2017-06-22] MEDS: INSULIN ASPART [NOVOLOG] 3 ML PEN SC SCH ×4 (09:05→21:18)
[2017-06-22 13:21] VITALS: BP 126/86; RESP 18
--- NOTE | 2017-06-22 14:31 | PN ---
Date/Time of Note Date/Time of Note DATE: 06/22/17 TIME: 14:30 Assessment/Plan VTE Prophylaxis VTE Prophylaxis Intervention: LMWH Lines/Catheters IV Catheter Type (from Nrs): Peripheral IV Urinary Cath still in place: No Assessment/Plan Chief Complaint/Hosp Course S: 06/19: Events noted 06/20: No dyspnea nausea vomiting tongue bite seizure. Bilateral heel pain without any known aggravating or relieving factors. Denies any injury. 06/21: No events. Anticipate discharge tomorrow. 06/22: No events. Anticipating discharge. O: Vss/sr No pallor Reg Clear Benign No edema A/P 1. Acute alcoholic intoxication/possible withdrawal; stable, cont Ativan B1 Pepcid. 2. Alcohol abuse. Social service assistance appreciated. Anticipate discharge today. 3. Depression 4. Alcohol associated bone marrow suppression 5. Chronic diabetes(8.4) /dyslipidemia/hypertension/metabolic syndrome 6. Tobacco abuse? Problems: Exam/Review of Systems Vital Signs Vitals Vital Signs Date Time Temp Pulse Resp B/P Pulse Ox O2 Delivery O2 Flow Rate FiO2 06/22/17 13:21 98.8 100 18 126/86 96 06/21/17 07:30 Nasal Cannula 2.0 Intake and Output 06/21/17 06/21/17 06/22/17 15:00 23:00 07:00 Intake Total 1200 ml 1520 ml Output Total 2800 ml 1600 ml Balance -1600 ml -80 ml Results Result Diagram: 06/22/17 0805 06/21/17 1420 Results 24 hrs Laboratory Tests Test 06/21/17 17:48 06/21/17 20:32 06/22/17 08:05 06/22/17 08:16 Bedside Glucose 195 175 165 White Blood Count 3.2 L Red Blood Count 3.40 L Hemoglobin 9.9 L Hematocrit 29.6 L Mean Corpuscular Volume 87.1 Mean Corpuscular Hemoglobin 29.1 Mean Corpuscular Hemoglobin Concent 33.4 Red Cell Distribution Width 12.7 Platelet Count 63 L Mean Platelet Volume 11.0 H Neutrophils % 56.2 Lymphocytes % 33.0 Monocytes % 8.6 Eosinophils % 1.6 Basophils % 0.3 Nucleated Red Blood Cells % 0.0 Neutrophils # (Manual) 1.8 Lymphocytes # 1.0 Monocytes # 0.3 Eosinophils # 0.1 Basophils # 0.0 Nucleated Red Blood Cells # 0.0 Test 06/22/17 08:57 06/22/17 11:54 Bedside Glucose 162 195 Medications Medications Current Medications Multivitamins 10 ml/Thiamine HCl 100 mg/Folic Acid 1 mg/Sodium Chloride 1,011.2 ml @ 125 mls/ hr DAILY@09 IVPB Last administered on 06/22/17 08:53; Admin Dose 125 MLS/HR; Start 06/19/17 at 11:00 Sodium Chloride (NS) 1,000 ml @ 125 mls/hr Q8H IV Last administered on 00:29; Admin Dose 125 MLS/HR; Start 06/19/17 at 08:30 Lorazepam (Ativan) 1 mg Q6H PRN IV agitation Last administered on 06/20/17 10: 14; Admin Dose 1 MG; Start 06/19/17 at 08:30 Pantoprazole (Protonix Tab) 40 mg DAILY@06 PO Last administered on 06/22/17 06 :12; Admin Dose 40 MG; Start 06/20/17 at 06:00 Ondansetron HCl (Zofran Inj) 4 mg Q6H PRN IV NAUSEA AND/OR VOMITING; Start at 08:30 Diagnostic Test (Pha) (Accu-Chek) 1 ea 02 XX ; Start 06/20/17 at 02:00 Miscellaneous Information 1 ea NOTE XX ; Start 06/19/17 at 10:30 Glucose (Glutose) 15 gm Q15M PRN PO DECREASED GLUCOSE; Start 06/19/17 at 10:30 Glucose (Glutose) 22.5 gm Q15M PRN PO DECREASED GLUCOSE; Start 06/19/17 at 10: 30 Dextrose (D50w Syringe) 25 ml Q15M PRN IV DECREASED GLUCOSE; Start 06/19/17 at 10:30 Dextrose (D50w Syringe) 50 ml Q15M PRN IV DECREASED GLUCOSE; Start 06/19/17 at 10:30 Glucagon (Glucagen) 1 mg Q15M PRN IM DECREASED GLUCOSE; Start 06/19/17 at 10:30 Glucose (Glutose) 15 gm Q15M PRN BUCCAL DECREASED GLUCOSE; Start 06/19/17 at 10 :30 Nicotine (Nicoderm 14 Mg/ 24hr) 1 patch DAILY TRANSDERM Last administered on 08:20; Admin Dose 1 PATCH; Start 06/20/17 at 09:00 Lorazepam (Ativan) 1 mg Q1H PRN IM ETOH WITHDRAWAL SYMPTOMS Last administered on 06/19/17 20:18; Admin Dose 1 MG; Start 06/19/17 at 19:30; Stop 06/22/17 at 19:00 Chlordiazepoxide (Librium) 50 mg TID PO Last administered on 06/22/17 11:56; Admin Dose 50 MG; Start 06/19/17 at 21:00; Stop 06/22/17 at 19:00 Potassium Chloride (Potassium Chloride Pwd/Soln) 40 meq DAILY PO Last administered on 06/22/17 08:20; Admin Dose 40 MEQ; Start 06/20/17 at 13:00 Gabapentin (Neurontin) 100 mg TID PO Last administered on 06/22/17 11:56; Admin Dose 100 MG; Start 06/20/17 at 13:00 Lorazepam (Ativan) 2 mg Q8 PO Last administered on 06/22/17 13:31; Admin Dose 2 MG; Start 06/20/17 at 14:00 Acetaminophen (Tylenol Tab) 650 mg Q6H PRN PO PAIN AND OR ELEVATED TEMP; Start 06/21/17 at 02:00 Lorazepam (Ativan) 2 mg Q2HWA PRN IM AGITATION/ANXIETY; Start 06/21/17 at 21:00 EDGAR MALLOY MD Jun 22, 2017 14:31
[2017-06-22] MEDS: THIAMINE 100 MG TAB PO SCH (17:27)
[2017-06-22 19:19] VITALS: BP 126/80; RESP 18; RESP 48
[2017-06-23 02:00] VITALS: BP 122/78; RESP 20
[2017-06-23] MEDS: ACCU-CHEK XX SCH (02:00)
[2017-06-23] MEDS: SOD CHLORIDE 0.9% 1,000 ML IV SCH ×2 (05:41→23:08)
[2017-06-23] MEDS: PANTOPRAZOLE (EC) 40 MG TAB PO SCH (05:41)
[2017-06-23] MEDS: LORAZEPAM 0.5 MG TAB PO SCH ×3 (05:41→21:57)
[2017-06-23 07:30] VITALS: BP 126/64; RESP 18
[2017-06-23] MEDS: INSULIN ASPART [NOVOLOG] 3 ML PEN SC SCH ×4 (08:10→22:06)
[2017-06-23 08:21] VITALS: BP 124/79; RESP 22
[2017-06-23] MEDS: NICOTINE (14 MG/24 HR) PATCH TRANSDERM SCH (09:07)
[2017-06-23] MEDS: GABAPENTIN 100 MG CAP PO SCH ×3 (09:07→21:57)
[2017-06-23] MEDS: POTASSIUM CHLORIDE 20 MEQ POWDER FOR ORAL SOLN PO SCH (09:07)
[2017-06-23] MEDS: THIAMINE 100 MG TAB PO SCH (09:07)
--- NOTE | 2017-06-23 18:35 | PN ---
Date/Time of Note Date/Time of Note DATE: 06/23/17 TIME: 18:33 Assessment/Plan VTE Prophylaxis VTE Prophylaxis Intervention: LMWH Lines/Catheters IV Catheter Type (from Nrs): Peripheral IV Urinary Cath still in place: No Assessment/Plan Chief Complaint/Hosp Course S: 06/19: Events noted 06/20: No dyspnea nausea vomiting tongue bite seizure. Bilateral heel pain without any known aggravating or relieving factors. Denies any injury. 06/21: No events. Anticipate discharge tomorrow. 06/22: No events. Anticipating discharge. 06/23: Participating with PT but unsteady. No family at bedside. Confused but follows commands. O: Vss No pallor Reg Clear Benign No edema A/P 1. Acute alcoholic intoxication/ withdrawal; stable, cont Ativan B1 Pepcid. 2. Alcohol abuse. Social service assistance appreciated. Discharge disposition per case management/social service. Hopefully the girlfriend can intervene. 3. Depression 4. Alcohol associated bone marrow suppression 5. Chronic diabetes(8.4) /dyslipidemia/hypertension/metabolic syndrome 6. Tobacco abuse? 7. Acute encephalopathy. Needs advanced care directives/decision-maker at some point 8. Debility Problems: Exam/Review of Systems Vital Signs Vitals Vital Signs Date Time Temp Pulse Resp B/P Pulse Ox O2 Delivery O2 Flow Rate FiO2 06/23/17 08:21 98.7 103 22 124/79 93 06/21/17 07:30 Nasal Cannula 2.0 Intake and Output 06/22/17 06/22/17 06/23/17 15:00 23:00 07:00 Intake Total 2595 ml 1405 ml Output Total 2800 ml 2300 ml Balance -205 ml -895 ml Results Result Diagram: 06/22/17 0805 06/21/17 1420 Results 24 hrs Laboratory Tests Test 06/22/17 21:14 06/23/17 02:04 06/23/17 08:00 06/23/17 12:14 Bedside Glucose 201 191 172 203 Test 06/23/17 17:21 Bedside Glucose 189 Medications Medications Current Medications Sodium Chloride (NS) 1,000 ml @ 75 mls/hr [id number] IV Last administered on t 05:41; Admin Dose 75 MLS/HR; Start 06/19/17 at 08:30 Lorazepam (Ativan) 1 mg Q6H PRN IV agitation Last administered on 06/20/17 10: 14; Admin Dose 1 MG; Start 06/19/17 at 08:30 Pantoprazole (Protonix Tab) 40 mg DAILY@06 PO Last administered on 06/23/17 05: 41; Admin Dose 40 MG; Start 06/20/17 at 06:00 Ondansetron HCl (Zofran Inj) 4 mg Q6H PRN IV NAUSEA AND/OR VOMITING; Start at 08:30 Diagnostic Test (Pha) (Accu-Chek) 1 ea 02 XX Last administered on 06/23/17 02: 00; Admin Dose 1 EA; Start 06/20/17 at 02:00 Miscellaneous Information 1 ea NOTE XX ; Start 06/19/17 at 10:30 Glucose (Glutose) 15 gm Q15M PRN PO DECREASED GLUCOSE; Start 06/19/17 at 10:30 Glucose (Glutose) 22.5 gm Q15M PRN PO DECREASED GLUCOSE; Start 06/19/17 at 10: 30 Dextrose (D50w Syringe) 25 ml Q15M PRN IV DECREASED GLUCOSE; Start 06/19/17 at 10:30 Dextrose (D50w Syringe) 50 ml Q15M PRN IV DECREASED GLUCOSE; Start 06/19/17 at 10:30 Glucagon (Glucagen) 1 mg Q15M PRN IM DECREASED GLUCOSE; Start 06/19/17 at 10:30 Glucose (Glutose) 15 gm Q15M PRN BUCCAL DECREASED GLUCOSE; Start 06/19/17 at 10 :30 Nicotine (Nicoderm 14 Mg/ 24hr) 1 patch DAILY TRANSDERM Last administered on 09:07; Admin Dose 1 PATCH; Start 06/20/17 at 09:00 Potassium Chloride (Potassium Chloride Pwd/Soln) 40 meq DAILY PO Last administered on 06/23/17 09:07; Admin Dose 40 MEQ; Start 06/20/17 at 13:00 Gabapentin (Neurontin) 100 mg TID PO Last administered on 06/23/17 14:08; Admin Dose 100 MG; Start 06/20/17 at 13:00 Lorazepam (Ativan) 2 mg Q8 PO Last administered on 06/23/17 14:08; Admin Dose 2 MG; Start 06/20/17 at 14:00 Acetaminophen (Tylenol Tab) 650 mg Q6H PRN PO PAIN AND OR ELEVATED TEMP; Start 06/21/17 at 02:00 Lorazepam (Ativan) 2 mg Q2HWA PRN IM AGITATION/ANXIETY; Start 06/21/17 at 21:00 Thiamine HCl (Vitamin B1) 100 mg DAILY PO Last administered on 06/23/17 09:07; Admin Dose 100 MG; Start 06/22/17 at 15:00 EDGAR MALLOY MD Jun 23, 2017 18:35
[2017-06-23 20:00] VITALS: BP 125/75; RESP 20
[2017-06-24 02:00] VITALS: BP 107/63; RESP 20
[2017-06-24] MEDS: ACCU-CHEK XX SCH (02:06)
[2017-06-24] MEDS: PANTOPRAZOLE (EC) 40 MG TAB PO SCH (06:26)
[2017-06-24] MEDS: LORAZEPAM 0.5 MG TAB PO SCH (06:26)
[2017-06-24 07:41] VITALS: BP 102/32; RESP 20
[2017-06-24] MEDS: POTASSIUM CHLORIDE 20 MEQ POWDER FOR ORAL SOLN PO SCH (08:43)
[2017-06-24] MEDS: THIAMINE 100 MG TAB PO SCH (08:43)
[2017-06-24] MEDS: NICOTINE (14 MG/24 HR) PATCH TRANSDERM SCH (08:43)
[2017-06-24] MEDS: GABAPENTIN 100 MG CAP PO SCH ×3 (08:44→22:01)
[2017-06-24] MEDS: INSULIN ASPART [NOVOLOG] 3 ML PEN SC SCH ×4 (08:52→22:00)
--- NOTE | 2017-06-24 12:31 | PN ---
Date/Time of Note Date/Time of Note DATE: 06/24/17 TIME: 12:30 Assessment/Plan VTE Prophylaxis VTE Prophylaxis Intervention: LMWH Lines/Catheters IV Catheter Type (from Nrs): Peripheral IV Urinary Cath still in place: No Assessment/Plan Chief Complaint/Hosp Course S: 06/19: Events noted 06/20: No dyspnea nausea vomiting tongue bite seizure. Bilateral heel pain without any known aggravating or relieving factors. Denies any injury. 06/21: No events. Anticipate discharge tomorrow. 06/22: No events. Anticipating discharge. 06/23: Participating with PT but unsteady. No family at bedside. Confused but follows commands. 06/24: Unsteady, confused. May need placement. O: Vss No pallor Reg Clear Benign No edema A/P 1. Acute alcoholic intoxication/ withdrawal; stable, cont Ativan B1 Pepcid. 2. Alcohol abuse. Social service assistance appreciated. Discharge disposition per case management/social service. Snf vs home. Hopefully the girlfriend can intervene. 3. Depression 4. Alcohol associated bone marrow suppression 5. Chronic diabetes(8.4) /dyslipidemia/hypertension/metabolic syndrome 6. Tobacco abuse? 7. Acute encephalopathy. Needs advanced care directives/decision-maker at some point 8. Debility Problems: Exam/Review of Systems Vital Signs Vitals Vital Signs Date Time Temp Pulse Resp B/P Pulse Ox O2 Delivery O2 Flow Rate FiO2 06/24/17 07:41 99.0 93 20 102/32 98 06/21/17 07:30 Nasal Cannula 2.0 Intake and Output 06/23/17 06/23/17 06/24/17 15:00 23:00 07:00 Intake Total 855 ml 375 ml 2470 ml Output Total 900 ml 1500 ml Balance -45 ml 375 ml 970 ml Results Result Diagram: 06/22/17 0805 06/21/17 1420 Results 24 hrs Laboratory Tests Test 06/23/17 17:21 06/23/17 22:00 06/24/17 01:39 06/24/17 08:42 Bedside Glucose 189 210 173 159 Medications Medications Current Medications Lorazepam (Ativan) 1 mg Q6H PRN IV agitation Last administered on 06/20/17t 10: 14; Admin Dose 1 MG; Start 06/19/17 at 08:30 Pantoprazole (Protonix Tab) 40 mg DAILY@06 PO Last administered on 06/24/17 06: 26; Admin Dose 40 MG; Start 06/20/17 at 06:00 Ondansetron HCl (Zofran Inj) 4 mg Q6H PRN IV NAUSEA AND/OR VOMITING; Start at 08:30 Diagnostic Test (Pha) (Accu-Chek) 1 ea 02 XX Last administered on 06/24/17 02: 06; Admin Dose 1 EA; Start 06/20/17 at 02:00 Miscellaneous Information 1 ea NOTE XX ; Start 06/19/17 at 10:30 Glucose (Glutose) 15 gm Q15M PRN PO DECREASED GLUCOSE; Start 06/19/17 at 10:30 Glucose (Glutose) 22.5 gm Q15M PRN PO DECREASED GLUCOSE; Start 06/19/17 at 10: 30 Dextrose (D50w Syringe) 25 ml Q15M PRN IV DECREASED GLUCOSE; Start 06/19/17 at 10:30 Dextrose (D50w Syringe) 50 ml Q15M PRN IV DECREASED GLUCOSE; Start 06/19/17 at 10:30 Glucagon (Glucagen) 1 mg Q15M PRN IM DECREASED GLUCOSE; Start 06/19/17 at 10:30 Glucose (Glutose) 15 gm Q15M PRN BUCCAL DECREASED GLUCOSE; Start 06/19/17 at 10 :30 Nicotine (Nicoderm 14 Mg/ 24hr) 1 patch DAILY TRANSDERM Last administered on 08:43; Admin Dose 1 PATCH; Start 06/20/17 at 09:00 Potassium Chloride (Potassium Chloride Pwd/Soln) 40 meq DAILY PO Last administered on 06/24/17 08:43; Admin Dose 40 MEQ; Start 06/20/17 at 13:00 Gabapentin (Neurontin) 100 mg TID PO Last administered on 06/24/17 08:44; Admin Dose 100 MG; Start 06/20/17 at 13:00 Lorazepam (Ativan) 2 mg Q8 PO Last administered on 06/24/17 06:26; Admin Dose 2 MG; Start 06/20/17 at 14:00 Acetaminophen (Tylenol Tab) 650 mg Q6H PRN PO PAIN AND OR ELEVATED TEMP; Start 06/21/17 at 02:00 Lorazepam (Ativan) 2 mg Q2HWA PRN IM AGITATION/ANXIETY; Start 06/21/17 at 21:00 Thiamine HCl (Vitamin B1) 100 mg DAILY PO Last administered on 06/24/17t 08:43; Admin Dose 100 MG; Start 06/22/17 at 15:00 Enoxaparin Sodium (Lovenox) 40 mg Q24H SC ; Start 06/24/17 at 21:00 EDGAR MALLOY MD Jun 24, 2017 12:31
[2017-06-24] MEDS ORDERED: LORAZEPAM 1 MG TAB ONE (13:53)
[2017-06-24 14:00] VITALS: BP 110/67; RESP 18
[2017-06-24] MEDS: LORAZEPAM 1 MG TAB PO SCH ×2 (14:10→22:01)
[2017-06-24 20:00] VITALS: BP 124/77; RESP 18
[2017-06-24] MEDS: ENOXAPARIN 40 MG/0.4 ML SYG SC SCH (22:10)
[2017-06-25] MEDS: ACCU-CHEK XX SCH (02:00)
[2017-06-25 02:59] VITALS: BP 95/55; RESP 18
[2017-06-25 06:17] LABS: ABNORMAL IP MESSAGE 1; BASOPHILS % 0.6 % (0.0-2.0); EOSINOPHILS % 0.9 % (0.0-7.0); HEMATOCRIT 31.9 % (42.0-52.0); HEMOGLOBIN 10.7 g/dl (14.0-18.0); LYMPHOCYTES # 1.3 10^3/ul (0.8-2.9); LYMPHOCYTES % 37.6 % (15.0-51.0); MEAN CORPUSCULAR HEMOGLOBIN 29.5 pg (29.0-33.0); MEAN CORPUSCULAR HGB CONC 33.5 g/dl (32.0-37.0); MEAN CORPUSCULAR VOLUME 87.9 fl (82.0-101.0); MEAN PLATELET VOLUME 10.2 fl (7.4-10.4); MONOCYTE # 0.5 10^3/ul (0.3-0.9); MONOCYTES % 13.3 % (0.0-11.0); NEUTROPHILS % 47.3 % (39.0-77.0); PLATELET COUNT 85 10^3/UL (140-415); POSITIVE DIFF @See below; RED BLOOD COUNT 3.63 10^6/ul (4.70-6.10); RED CELL DISTRIBUTION WIDTH 13.1 % (11.5-14.5); WHITE BLOOD COUNT 3.5 10^3/ul (4.8-10.8)
[2017-06-25] MEDS: LORAZEPAM 1 MG TAB PO SCH ×3 (06:20→21:58)
[2017-06-25] MEDS: PANTOPRAZOLE (EC) 40 MG TAB PO SCH (06:20)
[2017-06-25 06:32] LABS: CREATININE 0.42 mg/dl (0.61-1.24); MAGNESIUM 1.6 mg/dl (1.7-2.5); PHOSPHORUS 4.4 mg/dl (2.5-4.9); POTASSIUM 3.6 mmol/L (3.5-5.1)
[2017-06-25 07:37] VITALS: BP 102/60; RESP 16
[2017-06-25] MEDS: POTASSIUM CHLORIDE 20 MEQ POWDER FOR ORAL SOLN PO SCH (07:54)
[2017-06-25] MEDS: THIAMINE 100 MG TAB PO SCH (07:54)
[2017-06-25] MEDS: GABAPENTIN 100 MG CAP PO SCH ×3 (07:55→20:51)
[2017-06-25] MEDS: NICOTINE (14 MG/24 HR) PATCH TRANSDERM SCH (07:58)
[2017-06-25] MEDS: INSULIN ASPART [NOVOLOG] 3 ML PEN SC SCH ×4 (08:09→20:50)
--- NOTE | 2017-06-25 12:46 | PN ---
Date/Time of Note Date/Time of Note DATE: 06/25/17 TIME: 12:43 Assessment/Plan VTE Prophylaxis VTE Prophylaxis Intervention: LMWH Lines/Catheters IV [facility]from [facility] Saline Lock Urinary Cath still in place: No Assessment/Plan Chief Complaint/Hosp Course S: 06/19: Events noted 06/20: No dyspnea nausea vomiting tongue bite seizure. Bilateral heel pain without any known aggravating or relieving factors. Denies any injury. 06/21: No events. Anticipate discharge tomorrow. 06/22: No events. Anticipating discharge. 06/23: Participating with PT but unsteady. No family at bedside. Confused but follows commands. 06/24: Unsteady, confused. May need placement. 06/25: Awake alert follows commands but confused/ not oriented. Family visited today unable to take home. O: Vss No pallor/ droop Reg Clear Benign No edema Non focal A/P 1. Acute alcoholic intoxication/ withdrawal; stable, cont B1 Pepcid. Taper off Ativan. 2. Alcohol abuse. Social service assistance appreciated. Discharge disposition per case management/social service. Snf vs home. Hopefully the girlfriend can intervene. 3. Depression? 4. Alcohol associated bone marrow suppression 5. Chronic diabetes(8.4) /dyslipidemia/hypertension/metabolic syndrome 6. Tobacco abuse? 7. Acute encephalopathy due to #2. B12/folic a/RPR/MRI pending. Taper off Ativan. Needs advanced care directives/decision-maker at some point 8. Debility Problems: Exam/Review of Systems Vital Signs Vitals Vital Signs Date Time Temp Pulse Resp B/P Pulse Ox O2 Delivery O2 Flow Rate FiO2 06/25/17 07:37 98.4 95 16 102/60 90 06/21/17 07:30 Nasal Cannula 2.0 Intake and Output 06/24/17 06/24/17 06/25/17 15:00 23:00 07:00 Intake Total 300 ml 1520 ml 970 ml Output Total 1800 ml 800 ml Balance 300 ml -280 ml 170 ml Results Result Diagram: 06/25/17 0549 06/25/17 0549 Results 24 hrs Laboratory Tests Test 06/24/17 17:15 06/24/17 22:09 06/25/17 05:49 06/25/17 08:03 Bedside Glucose 207 168 186 White Blood Count 3.5 L Red Blood Count 3.63 L Hemoglobin 10.7 L Hematocrit 31.9 L Mean Corpuscular Volume 87.9 Mean Corpuscular Hemoglobin 29.5 Mean Corpuscular Hemoglobin Concent 33.5 Red Cell Distribution Width 13.1 Platelet Count 85 #L Mean Platelet Volume 10.2 Neutrophils % 47.3 Lymphocytes % 37.6 Monocytes % 13.3 H Eosinophils % 0.9 Basophils % 0.6 Nucleated Red Blood Cells % 0.0 Neutrophils # (Manual) 1.6 L Lymphocytes # 1.3 Monocytes # 0.5 Eosinophils # 0.0 Basophils # 0.0 Nucleated Red Blood Cells # 0.0 Sodium Level 138 Potassium Level 3.6 Chloride Level 106 Carbon Dioxide Level 25 Anion Gap 11 Blood Urea Nitrogen 7 Creatinine 0.42 L Glucose Level 195 Calcium Level 9.0 Phosphorus Level 4.4 Magnesium Level 1.6 L Medications Medications Current Medications Lorazepam (Ativan) 1 mg Q6H PRN IV agitation Last administered on 06/20/17 10: 14; Admin Dose 1 MG; Start 06/19/17 at 08:30 Pantoprazole (Protonix Tab) 40 mg DAILY@06 PO Last administered on 06/25/17 06: 20; Admin Dose 40 MG; Start 06/20/17 at 06:00 Ondansetron HCl (Zofran Inj) 4 mg Q6H PRN IV NAUSEA AND/OR VOMITING; Start at 08:30 Diagnostic Test (Pha) (Accu-Chek) 1 ea 02 XX Last administered on 06/24/17 02: 06; Admin Dose 1 EA; Start 06/20/17 at 02:00 Miscellaneous Information 1 ea NOTE XX ; Start 06/19/17 at 10:30 Glucose (Glutose) 15 gm Q15M PRN PO DECREASED GLUCOSE; Start 06/19/17 at 10:30 Glucose (Glutose) 22.5 gm Q15M PRN PO DECREASED GLUCOSE; Start 06/19/17 at 10: 30 Dextrose (D50w Syringe) 25 ml Q15M PRN IV DECREASED GLUCOSE; Start 06/19/17 at 10:30 Dextrose (D50w Syringe) 50 ml Q15M PRN IV DECREASED GLUCOSE; Start 06/19/17 at 10:30 Glucagon (Glucagen) 1 mg Q15M PRN IM DECREASED GLUCOSE; Start 06/19/17 at 10:30 Glucose (Glutose) 15 gm Q15M PRN BUCCAL DECREASED GLUCOSE; Start 06/19/17 at 10 :30 Nicotine (Nicoderm 14 Mg/ 24hr) 1 patch DAILY TRANSDERM Last administered on 07:58; Admin Dose 1 PATCH; Start 06/20/17 at 09:00 Potassium Chloride (Potassium Chloride Pwd/Soln) 40 meq DAILY PO Last administered on 06/25/17 07:54; Admin Dose 40 MEQ; Start 06/20/17 at 13:00 Gabapentin (Neurontin) 100 mg TID PO Last administered on 06/25/17 12:30; Admin Dose 100 MG; Start 06/20/17 at 13:00 Acetaminophen (Tylenol Tab) 650 mg Q6H PRN PO PAIN AND OR ELEVATED TEMP; Start 06/21/17 at 02:00 Lorazepam (Ativan) 2 mg Q2HWA PRN IM AGITATION/ANXIETY; Start 06/21/17 at 21:00 Thiamine HCl (Vitamin B1) 100 mg DAILY PO Last administered on 06/25/17 07:54; Admin Dose 100 MG; Start 06/22/17 at 15:00 Enoxaparin Sodium (Lovenox) 40 mg Q24H SC Last administered on 06/24/17 22:10; Admin Dose 40 MG; Start 06/24/17 at 21:00 Lorazepam (Ativan) 2 mg Q8 PO Last administered on 06/25/17 06:20; Admin Dose 2 MG; Start 06/24/17 at 14:00 EDGAR MALLOY MD Jun 25, 2017 12:46
[2017-06-25 14:00] VITALS: BP 110/62; RESP 16
[2017-06-25] MEDS ORDERED: MAGNESIUM SULFATE 3 GM in SOD CHLORIDE 0.9% 100 ML IVPB ONE (14:00)
--- NOTE | 2017-06-25 17:25 | RADRPT ---
PROCEDURE: MR Brain noncontrast. CLINICAL INDICATION: Altered mental status, seizure TECHNIQUE: Multiplanar multisequence noncontrast MRI of the brain was performed utilizing the follo wing pulse sequences: Axial T2, axial FLAIR, sagittal T1 FLAIR, coronal GRE, coronal oblique P2 FLA IR, coronal oblique 3D, and axial diffusion weighted imaging. COMPARISON: There are no similar studies submitted for comparison. FINDINGS: There is no evidence of restricted diffusion to suggest acute ischemia/infarct. There is no acute i ntracranial hemorrhage, mass effect, midline shift, or abnormal extra-axial collection. The cerebra l sulci and ventricles are within normal limits in size and configuration for patient age. The bila teral mesial temporal structures are normal and symmetric in size, morphology, and signal intensity. A few small T2 / FLAIR hyperintense foci scattered in the periventricular and deep cerebral white ma tter are nonspecific. Linear T2 / FLAIR hyperintensity along the ventral splenium of the corpus call osum without associated restricted diffusion is nonspecific, but may be seen with various metabolic derangements, toxicities, and various inflammatory and / or demyelinating conditions, among others ( series 5, image 15). The sella, parasellar, and suprasellar regions are unremarkable. The brainstem and cerebellum are normal in morphology and signal intensity. The basal cisterns are preserved. There is mild bilateral ethmoid sinus mucosal thickening without air-fluid levels to suggest acute s inusitis. The orbits are unremarkable. No suspicious osseous lesion is identified. IMPRESSION: 1. No acute intracranial hemorrhage, acute ischemia/infarct, or intracranial mass effect. 2. Linear T2 / FLAIR hyperintensity along the ventral splenium of the corpus callosum (without assoc iated restricted diffusion or mass effect) is nonspecific, but may be seen with various metabolic de rangements, toxicities, and various inflammatory and / or demyelinating conditions, among others. 3. Mild mucosal thickening within the ethmoid sinuses bilaterally. No air-fluid levels to suggest acute sinusitis. RPTAT: HRC Physician Feliciano Date Time Electronically viewed and signed by Physician Feliciano on 06/25/2017 17:25 RC/
[2017-06-25 19:37] VITALS: BP 127/76; RESP 20
[2017-06-25] MEDS: ENOXAPARIN 40 MG/0.4 ML SYG SC SCH (20:51)
[2017-06-26 01:53] VITALS: BP 111/74; RESP 20
[2017-06-26] MEDS: ACCU-CHEK XX SCH (02:19)
[2017-06-26] MEDS: PANTOPRAZOLE (EC) 40 MG TAB PO SCH (06:09)
[2017-06-26] MEDS: LORAZEPAM 1 MG TAB PO SCH (06:09)
[2017-06-26 07:49] VITALS: BP 102/64; RESP 18
[2017-06-26] MEDS: INSULIN ASPART [NOVOLOG] 3 ML PEN SC SCH ×4 (08:09→20:30)
[2017-06-26] MEDS: POTASSIUM CHLORIDE 20 MEQ POWDER FOR ORAL SOLN PO SCH (09:06)
[2017-06-26] MEDS: GABAPENTIN 100 MG CAP PO SCH ×3 (09:07→20:24)
[2017-06-26] MEDS: CHOLECALCIFEROL 2,000 UNIT CAP PO SCH (09:07)
[2017-06-26] MEDS: MAGNESIUM OXIDE 400 MG TAB PO SCH ×3 (09:07→20:24)
[2017-06-26] MEDS: NICOTINE (14 MG/24 HR) PATCH TRANSDERM SCH (09:08)
[2017-06-26] MEDS: THIAMINE 100 MG TAB PO SCH (09:08)
[2017-06-26 10:40] LABS: BASOPHILS % 0.9 % (0.0-2.0); EOSINOPHILS % 0.6 % (0.0-7.0); HEMATOCRIT 33.4 % (42.0-52.0); HEMOGLOBIN 11.2 g/dl (14.0-18.0); LYMPHOCYTES # 1.1 10^3/ul (0.8-2.9); LYMPHOCYTES % 34.7 % (15.0-51.0); MEAN CORPUSCULAR HEMOGLOBIN 29.6 pg (29.0-33.0); MEAN CORPUSCULAR HGB CONC 33.5 g/dl (32.0-37.0); MEAN CORPUSCULAR VOLUME 88.4 fl (82.0-101.0); MEAN PLATELET VOLUME 10.4 fl (7.4-10.4); MONOCYTE # 0.5 10^3/ul (0.3-0.9); MONOCYTES % 14.9 % (0.0-11.0); NEUTROPHILS % 48.6 % (39.0-77.0); PLATELET COUNT 106 10^3/UL (140-415); RED BLOOD COUNT 3.78 10^6/ul (4.70-6.10); RED CELL DISTRIBUTION WIDTH 13.2 % (11.5-14.5); WHITE BLOOD COUNT 3.3 10^3/ul (4.8-10.8)
[2017-06-26 11:05] LABS: ALBUMIN 3.1 g/dl (3.3-4.9); ALBUMIN/GLOBULIN RATIO 0.63; BILIRUBIN,INDIRECT 0.4 mg/dl (0-1.1); BILIRUBIN,TOTAL 0.4 mg/dl (0.2-1.3); CALCIUM 8.9 mg/dl (8.4-10.2); CREATININE 0.5 mg/dl (0.61-1.24); MAGNESIUM 1.8 mg/dl (1.7-2.5); PHOSPHORUS 4.4 mg/dl (2.5-4.9); POTASSIUM 3.9 mmol/L (3.5-5.1)
--- NOTE | 2017-06-26 11:16 | PN ---
Date/Time of Note Date/Time of Note DATE: 06/26/17 TIME: 11:06 Assessment/Plan VTE Prophylaxis VTE Prophylaxis Intervention: LMWH Lines/Catheters IV [facility] Type (from [facility] Saline Lock Urinary Cath still in place: No Assessment/Plan Assessment/Plan 1. Acute alcoholic intoxication/ withdrawal; stable, cont B1 Pepcid. change ativan to PRN 2. Alcohol abuse. Social service assistance appreciated. Discharge disposition per case management/social service. Snf vs home. Hopefully the girlfriend can intervene. 3. Pancytopenia, alcohol related, follow up with CBC 4. Chronic diabetes, on ISS 5. Tobacco abuse, on patch 6. DVT prophylaxis: lovenox Subjective 24 Hr Interval Summary Free Text/Dictation no tremor. no agitation Exam/Review of Systems Vital Signs Vitals Vital Signs Date Time Temp Pulse Resp B/P Pulse Ox O2 Delivery O2 Flow Rate FiO2 06/26/17 07:49 98.3 94 18 102/64 93 Intake and Output 06/25/17 06/25/17 06/26/17 14:59 22:59 06:59 Intake Total 946 ml 880 ml Output Total 1050 ml 200 ml Balance -104 ml 680 ml Exam Constitutional: alert, oriented, well developed Head: atraumatic, normocephalic Eyes: EOMI, PERRL, nl conjunctiva, nl lids ENMT: nl external ears & nose, nl lips & teeth, nl nasal mucosa & septum Neck: non-tender, supple Respiratory: clear to auscultation, normal air movement, No congested cough, No crackles/rales, No diminished breath sounds, No intercostal retraction, No labored breathing, No other, No respirations, No tactile fremitus, No wheezing Cardiovascular: nl pulses, regular rate and rhythm, No S3, No S4, No bruits, No diastolic murmur, No edema, No gallop, No irregular rhythm, No jugular venous distention (JVD), No murmurs/extra sounds, No other, No rub, No systolic murmur Gastrointestinal: nl liver, spleen, non-tender, soft, No ascites, No bowel sounds, No distended, No firm, No hepatomegaly, No mass , No other, No rebound or guarding, No splenomegaly, No surgical scars, No tender Musculoskeletal: nl extremities to inspection Extremities: normal pulses, No calf tenderness, No clubbing, No cyanosis, No edema, No other, No palpable cord, No pitting pedal edema, No tenderness Neurological: TUTOR II-XII intact, nl mental status, nl speech, nl strength Skin: nl turgor Lymph: nl lymph nodes Results Result Diagram: 06/26/17 0918 06/25/17 0549 Results 24 hrs Laboratory Tests Test 06/25/17 12:33 06/25/17 17:22 06/25/17 20:41 06/26/17 01:45 Bedside Glucose 235 H 203 189 169 Test 06/26/17 08:06 06/26/17 09:18 Bedside Glucose 203 White Blood Count 3.3 L Red Blood Count 3.78 L Hemoglobin 11.2 L Hematocrit 33.4 L Mean Corpuscular Volume 88.4 Mean Corpuscular Hemoglobin 29.6 Mean Corpuscular Hemoglobin Concent 33.5 Red Cell Distribution Width 13.2 Platelet Count 106 #L Mean Platelet Volume 10.4 Neutrophils % 48.6 Lymphocytes % 34.7 Monocytes % 14.9 H Eosinophils % 0.6 Basophils % 0.9 Nucleated Red Blood Cells % 0.0 Neutrophils # (Manual) 1.6 L Lymphocytes # 1.1 Monocytes # 0.5 Eosinophils # 0.0 Basophils # 0.0 Nucleated Red Blood Cells # 0.0 Medications Medications Current Medications Lorazepam (Ativan) 1 mg Q6H PRN IV agitation Last administered on 06/20/17 10: 14; Admin Dose 1 MG; Start 06/19/17 at 08:30 Pantoprazole (Protonix Tab) 40 mg DAILY@06 PO Last administered on 06/26/17 06: 09; Admin Dose 40 MG; Start 06/20/17 at 06:00 Ondansetron HCl (Zofran Inj) 4 mg Q6H PRN IV NAUSEA AND/OR VOMITING; Start at 08:30 Diagnostic Test (Pha) (Accu-Chek) 1 ea 02 XX Last administered on 06/26/17 02: 19; Admin Dose 1 EA; Start 06/20/17 at 02:00 Miscellaneous Information 1 ea NOTE XX ; Start 06/19/17 at 10:30 Glucose (Glutose) 15 gm Q15M PRN PO DECREASED GLUCOSE; Start 06/19/17 at 10:30 Glucose (Glutose) 22.5 gm Q15M PRN PO DECREASED GLUCOSE; Start 06/19/17 at 10: 30 Dextrose (D50w Syringe) 25 ml Q15M PRN IV DECREASED GLUCOSE; Start 06/19/17 at 10:30 Dextrose (D50w Syringe) 50 ml Q15M PRN IV DECREASED GLUCOSE; Start 06/19/17 at 10:30 Glucagon (Glucagen) 1 mg Q15M PRN IM DECREASED GLUCOSE; Start 06/19/17 at 10:30 Glucose (Glutose) 15 gm Q15M PRN BUCCAL DECREASED GLUCOSE; Start 06/19/17 at 10 :30 Nicotine (Nicoderm 14 Mg/ 24hr) 1 patch DAILY TRANSDERM Last administered on 09:08; Admin Dose 1 PATCH; Start 06/20/17 at 09:00 Potassium Chloride (Potassium Chloride Pwd/Soln) 40 meq DAILY PO Last administered on 06/26/17 09:06; Admin Dose 40 MEQ; Start 06/20/17 at 13:00 Gabapentin (Neurontin) 100 mg TID PO Last administered on 06/26/17 09:07; Admin Dose 100 MG; Start 06/20/17 at 13:00 Acetaminophen (Tylenol Tab) 650 mg Q6H PRN PO PAIN AND OR ELEVATED TEMP; Start 06/21/17 at 02:00 Lorazepam (Ativan) 2 mg Q2HWA PRN IM AGITATION/ANXIETY; Start 06/21/17 at 21:00 Thiamine HCl (Vitamin B1) 100 mg DAILY PO Last administered on 06/26/17 09:08; Admin Dose 100 MG; Start 06/22/17 at 15:00 Enoxaparin Sodium (Lovenox) 40 mg Q24H SC Last administered on 06/25/17 20:51; Admin Dose 40 MG; Start 06/24/17 at 21:00 Lorazepam (Ativan) 1 mg Q8 PO Last administered on 06/26/17 06:09; Admin Dose 1 MG; Start 06/25/17 at 14:00; Stop 06/26/17 at 23:00 Magnesium Oxide (Mag-Ox 400) 400 mg TID PO Last administered on 06/26/17 09:07 ; Admin Dose 400 MG; Start 06/26/17 at 09:00 Cholecalciferol (Vitamin D) 2,000 unit DAILY PO Last administered on 06/26/17t 09:07; Admin Dose 2,000 UNIT; Start 06/26/17 at 09:00 MARIEL MARTINS MD Jun 26, 2017 11:16
[2017-06-26] MEDS ORDERED: LORAZEPAM 1 MG TAB PO PRN (11:30)
[2017-06-26 14:25] VITALS: BP 120/77; RESP 18
[2017-06-26 20:00] VITALS: BP 114/72; RESP 20
[2017-06-26] MEDS: ENOXAPARIN 40 MG/0.4 ML SYG SC SCH (20:31)
[2017-06-27 02:00] VITALS: BP 108/66; RESP 20
[2017-06-27] MEDS: ACCU-CHEK XX SCH (02:00)
[2017-06-27 05:52] LABS: BASOPHILS % 0.7 % (0.0-2.0); EOSINOPHILS % 0.7 % (0.0-7.0); LYMPHOCYTES # 1.3 10^3/ul (0.8-2.9); LYMPHOCYTES % 21.7 % (15.0-51.0); MEAN CORPUSCULAR HEMOGLOBIN 28.6 pg (29.0-33.0); MEAN CORPUSCULAR HGB CONC 32.4 g/dl (32.0-37.0); MEAN CORPUSCULAR VOLUME 88.3 fl (82.0-101.0); MEAN PLATELET VOLUME 10.6 fl (7.4-10.4); MONOCYTE # 0.8 10^3/ul (0.3-0.9); MONOCYTES % 14.6 % (0.0-11.0); NEUTROPHILS % 62.1 % (39.0-77.0); PLATELET COUNT 100 10^3/UL (140-415); RED BLOOD COUNT 3.85 10^6/ul (4.70-6.10); RED CELL DISTRIBUTION WIDTH 13.2 % (11.5-14.5); WHITE BLOOD COUNT 5.8 10^3/ul (4.8-10.8)
[2017-06-27] MEDS: PANTOPRAZOLE (EC) 40 MG TAB PO SCH (06:13)
[2017-06-27 06:36] LABS: ALBUMIN 3.1 g/dl (3.3-4.9); ALBUMIN/GLOBULIN RATIO 0.72; BILIRUBIN,INDIRECT 0.5 mg/dl (0-1.1); BILIRUBIN,TOTAL 0.5 mg/dl (0.2-1.3); CALCIUM 9.4 mg/dl (8.4-10.2); CREATININE 0.49 mg/dl (0.61-1.24); TOTAL PROTEIN 7.4 g/dl (6.1-8.1)
[2017-06-27 07:59] VITALS: BP 98/60; RESP 20
[2017-06-27] MEDS: INSULIN ASPART [NOVOLOG] 3 ML PEN SC SCH ×4 (08:04→20:30)
[2017-06-27] MEDS: MAGNESIUM OXIDE 400 MG TAB PO SCH ×3 (08:34→20:20)
[2017-06-27] MEDS: THIAMINE 100 MG TAB PO SCH (08:34)
[2017-06-27] MEDS: CHOLECALCIFEROL 2,000 UNIT CAP PO SCH (08:34)
[2017-06-27] MEDS: GABAPENTIN 100 MG CAP PO SCH ×3 (08:34→20:20)
[2017-06-27] MEDS: NICOTINE (14 MG/24 HR) PATCH TRANSDERM SCH (08:35)
[2017-06-27] MEDS: POTASSIUM CHLORIDE 20 MEQ POWDER FOR ORAL SOLN PO SCH (09:00)
--- NOTE | 2017-06-27 10:09 | PN ---
Date/Time of Note Date/Time of Note DATE: 06/27/17 TIME: 09:57 Assessment/Plan VTE Prophylaxis VTE Prophylaxis Intervention: LMWH Lines/Catheters IV [facility] Saline Lock Urinary Cath still in place: No Assessment/Plan Chief Complaint/Hosp Course 1. EtOH intoxication/ withdrawal.stable. -cont B1, Pepcid. -Social service assistance appreciated 2. Alcohol induced thrombocytopenia, stable. -We will monitor 3. Chronic anemia. Stable. Will monitor 4. DMII -Continue with Accu-Cheks and insulin sliding scale. 5. Tobacco abuse -Continue nicotine patch. Cessation advised. 6. Homelessness. DVT prophylaxis: lovenox Plan: Patient with homelessness, fall risk with poor safety judgment situation. Therefore, patient would need long-term facility upon discharge. Case management following. Case discussed with Problems: Subjective 24 Hr Interval Summary Free Text/Dictation No acute overnight episodes. Pending placement. Exam/Review of Systems Vital Signs Vitals Vital Signs Date Time Temp Pulse Resp B/P Pulse Ox O2 Delivery O2 Flow Rate FiO2 06/27/17 07:59 99.0 77 20 98/60 98 Intake and Output 06/26/17 06/26/17 06/27/17 15:00 23:00 07:00 Intake Total 1120 ml Balance 1120 ml Exam Constitutional: well developed Psych: confusion, other (, poor judgement) Head: atraumatic, normocephalic Eyes: PERRL Neck: supple Respiratory: clear to auscultation Cardiovascular: nl pulses, regular rate and rhythm Gastrointestinal: non-tender, soft Genitourinary - Male: other (deferred) Musculoskeletal: muscle weakness, nl extremities to inspection Extremities: normal pulses Neurological: other (awake/orientedx3) Skin: rash or lesions Results Result Diagram: 06/27/17 0504 06/27/17 0504 Results 24 hrs Laboratory Tests Test 06/26/17 12:24 06/26/17 17:20 06/26/17 20:26 06/27/17 05:04 Bedside Glucose 205 147 161 White Blood Count 5.8 # Red Blood Count 3.85 L Hemoglobin 11.0 L Hematocrit 34.0 L Mean Corpuscular Volume 88.3 Mean Corpuscular Hemoglobin 28.6 L Mean Corpuscular Hemoglobin Concent 32.4 Red Cell Distribution Width 13.2 Platelet Count 100 L Mean Platelet Volume 10.6 H Neutrophils % 62.1 Lymphocytes % 21.7 Monocytes % 14.6 H Eosinophils % 0.7 Basophils % 0.7 Nucleated Red Blood Cells % 0.0 Neutrophils # (Manual) 3.6 Lymphocytes # 1.3 Monocytes # 0.8 Eosinophils # 0.0 Basophils # 0.0 Nucleated Red Blood Cells # 0.0 Sodium Level 137 Potassium Level 4.0 Chloride Level 105 Carbon Dioxide Level 25 Anion Gap 11 Blood Urea Nitrogen 10 Creatinine 0.49 L Glucose Level 159 Calcium Level 9.4 Total Bilirubin 0.5 Direct Bilirubin 0.00 Indirect Bilirubin 0.5 Aspartate Amino Transf (AST/SGOT) 37 Alanine Aminotransferase (ALT/SGPT) 31 Alkaline Phosphatase 111 Total Protein 7.4 Albumin 3.1 L Globulin 4.30 H Albumin/Globulin Ratio 0.72 Test 06/27/17 07:59 Bedside Glucose 148 Medications Medications Current Medications Lorazepam (Ativan) 1 mg Q6H PRN IV agitation Last administered on 06/20/17 10: 14; Admin Dose 1 MG; Start 06/19/17 at 08:30 Pantoprazole (Protonix Tab) 40 mg DAILY@06 PO Last administered on 06/27/17 06: 13; Admin Dose 40 MG; Start 06/20/17 at 06:00 Ondansetron HCl (Zofran Inj) 4 mg Q6H PRN IV NAUSEA AND/OR VOMITING; Start at 08:30 Diagnostic Test (Pha) (Accu-Chek) 1 ea 02 XX Last administered on 06/26/17 02: 19; Admin Dose 1 EA; Start 06/20/17 at 02:00 Miscellaneous Information 1 ea NOTE XX ; Start 06/19/17 at 10:30 Glucose (Glutose) 15 gm Q15M PRN PO DECREASED GLUCOSE; Start 06/19/17 at 10:30 Glucose (Glutose) 22.5 gm Q15M PRN PO DECREASED GLUCOSE; Start 06/19/17 at 10: 30 Dextrose (D50w Syringe) 25 ml Q15M PRN IV DECREASED GLUCOSE; Start 06/19/17 at 10:30 Dextrose (D50w Syringe) 50 ml Q15M PRN IV DECREASED GLUCOSE; Start 06/19/17 at 10:30 Glucagon (Glucagen) 1 mg Q15M PRN IM DECREASED GLUCOSE; Start 06/19/17 at 10:30 Glucose (Glutose) 15 gm Q15M PRN BUCCAL DECREASED GLUCOSE; Start 06/19/17 at 10 :30 Nicotine (Nicoderm 14 Mg/ 24hr) 1 patch DAILY TRANSDERM Last administered on 08:35; Admin Dose 1 PATCH; Start 06/20/17 at 09:00 Potassium Chloride (Potassium Chloride Pwd/Soln) 40 meq DAILY PO Last administered on 06/26/17 09:06; Admin Dose 40 MEQ; Start 06/20/17 at 13:00 Gabapentin (Neurontin) 100 mg TID PO Last administered on 06/27/17 08:34; Admin Dose 100 MG; Start 06/20/17 at 13:00 Acetaminophen (Tylenol Tab) 650 mg Q6H PRN PO PAIN AND OR ELEVATED TEMP Last administered on 06/26/17 20:38; Admin Dose 650 MG; Start 06/21/17 at 02:00 Lorazepam (Ativan) 2 mg Q2HWA PRN IM AGITATION/ANXIETY; Start 06/21/17 at 21:00 Thiamine HCl (Vitamin B1) 100 mg DAILY PO Last administered on 06/27/17 08:34; Admin Dose 100 MG; Start 06/22/17 at 15:00 Enoxaparin Sodium (Lovenox) 40 mg Q24H SC Last administered on 06/26/17 20:31; Admin Dose 40 MG; Start 06/24/17 at 21:00 Magnesium Oxide (Mag-Ox 400) 400 mg TID PO Last administered on 06/27/17 08:34 ; Admin Dose 400 MG; Start 06/26/17 at 09:00 Cholecalciferol (Vitamin D) 2,000 unit DAILY PO Last administered on 06/27/17 08:34; Admin Dose 2,000 UNIT; Start 06/26/17 at 09:00 Lorazepam (Ativan) 1 mg Q8 PRN PO agitation; Start 06/26/17 at 11:30 CISCO CONTRERAS NP Jun 27, 2017 10:08
[2017-06-27 15:49] VITALS: BP 109/72; RESP 20
[2017-06-27 19:56] VITALS: BP 118/74; RESP 20
[2017-06-27] MEDS: ENOXAPARIN 40 MG/0.4 ML SYG SC SCH (20:24)
[2017-06-28] MEDS: ACCU-CHEK XX SCH (02:00)
[2017-06-28 02:11] VITALS: BP 107/66; RESP 20
[2017-06-28] MEDS: PANTOPRAZOLE (EC) 40 MG TAB PO SCH (06:07)
[2017-06-28 07:46] VITALS: BP 99/59; RESP 20
[2017-06-28] MEDS: INSULIN ASPART [NOVOLOG] 3 ML PEN SC SCH ×4 (08:15→21:44)
[2017-06-28] MEDS: THIAMINE 100 MG TAB PO SCH (09:29)
[2017-06-28] MEDS: NICOTINE (14 MG/24 HR) PATCH TRANSDERM SCH (09:30)
[2017-06-28] MEDS: CHOLECALCIFEROL 2,000 UNIT CAP PO SCH (09:30)
[2017-06-28] MEDS: GABAPENTIN 100 MG CAP PO SCH ×3 (09:30→21:43)
[2017-06-28] MEDS: MAGNESIUM OXIDE 400 MG TAB PO SCH ×3 (09:30→21:43)
--- NOTE | 2017-06-28 09:38 | PN ---
Date/Time of Note Date/Time of Note DATE: 06/28/17 TIME: 09:36 Assessment/Plan VTE Prophylaxis VTE Prophylaxis Intervention: LMWH Lines/Catheters IV C[facility] Type (from [facility] Saline Lock Urinary Cath still in place: No Assessment/Plan Chief Complaint/Hosp Course 1. EtOH intoxication/ withdrawal.stable. -cont B1, Pepcid. -Social service assistance appreciated 2. Alcohol induced thrombocytopenia, stable. -We will monitor 3. Chronic anemia. Stable. Will monitor 4. DMII -Continue with Accu-Cheks and insulin sliding scale. 5. Tobacco abuse -Continue nicotine patch. Cessation advised. 6. Homelessness. DVT prophylaxis: lovenox Plan: Patient with homelessness, fall risk with poor safety judgment situation. Therefore, patient would need senior care facility upon discharge. Case management following. Case discussed with Problems: Subjective 24 Hr Interval Summary Free Text/Dictation No acute overnight episodes. Exam/Review of Systems Vital Signs Vitals Vital Signs Date Time Temp Pulse Resp B/P Pulse Ox O2 Delivery O2 Flow Rate FiO2 06/28/17 07:46 100.2 95 20 99/59 90 Intake and Output 06/27/17 06/27/17 06/28/17 15:00 23:00 07:00 Intake Total 1080 ml 300 ml Balance 1080 ml 300 ml Exam Constitutional: well developed Psych: confusion, other (, poor judgement) Head: atraumatic, normocephalic Eyes: PERRL Neck: supple Respiratory: clear to auscultation Cardiovascular: nl pulses, regular rate and rhythm Gastrointestinal: non-tender, soft Genitourinary - Male: other (deferred) Musculoskeletal: muscle weakness, nl extremities to inspection Extremities: normal pulses Neurological: other (awake/orientedx3) Skin: rash or lesions Results Result Diagram: 06/27/17 0504 06/27/17 0504 Results 24 hrs Laboratory Tests Test 06/27/17 12:06 06/27/17 17:27 06/27/17 20:25 06/28/17 01:53 Bedside Glucose 227 H 158 203 176 Test 06/28/17 08:14 Bedside Glucose 118 Medications Medications Current Medications Lorazepam (Ativan) 1 mg Q6H PRN IV agitation Last administered on 06/20/17t 10: 14; Admin Dose 1 MG; Start 06/19/17 at 08:30 Pantoprazole (Protonix Tab) 40 mg DAILY@06 PO Last administered on 06/28/17 06: 07; Admin Dose 40 MG; Start 06/20/17 at 06:00 Ondansetron HCl (Zofran Inj) 4 mg Q6H PRN IV NAUSEA AND/OR VOMITING; Start at 08:30 Diagnostic Test (Pha) (Accu-Chek) 1 ea 02 XX Last administered on 06/28/17 02: 00; Admin Dose 1 EA; Start 06/20/17 at 02:00 Miscellaneous Information 1 ea NOTE XX ; Start 06/19/17 at 10:30 Glucose (Glutose) 15 gm Q15M PRN PO DECREASED GLUCOSE; Start 06/19/17 at 10:30 Glucose (Glutose) 22.5 gm Q15M PRN PO DECREASED GLUCOSE; Start 06/19/17 at 10: 30 Dextrose (D50w Syringe) 25 ml Q15M PRN IV DECREASED GLUCOSE; Start 06/19/17 at 10:30 Dextrose (D50w Syringe) 50 ml Q15M PRN IV DECREASED GLUCOSE; Start 06/19/17 at 10:30 Glucagon (Glucagen) 1 mg Q15M PRN IM DECREASED GLUCOSE; Start 06/19/17 at 10:30 Glucose (Glutose) 15 gm Q15M PRN BUCCAL DECREASED GLUCOSE; Start 06/19/17 at 10 :30 Nicotine (Nicoderm 14 Mg/ 24hr) 1 patch DAILY TRANSDERM Last administered on 09:30; Admin Dose 1 PATCH; Start 06/20/17 at 09:00 Gabapentin (Neurontin) 100 mg TID PO Last administered on 06/28/17 09:30; Admin Dose 100 MG; Start 06/20/17 at 13:00 Acetaminophen (Tylenol Tab) 650 mg Q6H PRN PO PAIN AND OR ELEVATED TEMP Last administered on 06/26/17 20:38; Admin Dose 650 MG; Start 06/21/17 at 02:00 Lorazepam (Ativan) 2 mg Q2HWA PRN IM AGITATION/ANXIETY; Start 06/21/17 at 21:00 Thiamine HCl (Vitamin B1) 100 mg DAILY PO Last administered on 06/28/17 09:29; Admin Dose 100 MG; Start 06/22/17 at 15:00 Enoxaparin Sodium (Lovenox) 40 mg Q24H SC Last administered on 06/27/17 20:24; Admin Dose 40 MG; Start 06/24/17 at 21:00 Magnesium Oxide (Mag-Ox 400) 400 mg TID PO Last administered on 06/28/17 09:30 ; Admin Dose 400 MG; Start 06/26/17 at 09:00 Cholecalciferol (Vitamin D) 2,000 unit DAILY PO Last administered on 06/28/17 09:30; Admin Dose 2,000 UNIT; Start 06/26/17 at 09:00 Lorazepam (Ativan) 1 mg Q8 PRN PO agitation; Start 06/26/17 at 11:30 CISCO CONTRERAS NP Jun 28, 2017 09:38
[2017-06-28 15:52] VITALS: BP 105/73; RESP 20
[2017-06-28 20:00] VITALS: BP 115/75; RESP 20
[2017-06-28 20:30] VITALS: PULSE 98
[2017-06-28] MEDS: ENOXAPARIN 40 MG/0.4 ML SYG SC SCH (21:45)
[2017-06-28] MEDS ORDERED: NAPHAZOLINE 0.012% 15 ML OPH BOTH EYES SCH (23:30)
[2017-06-29 02:00] VITALS: BP 104/57; RESP 18
[2017-06-29] MEDS: ACCU-CHEK XX SCH (02:04)
[2017-06-29] MEDS: PANTOPRAZOLE (EC) 40 MG TAB PO SCH (05:36)
[2017-06-29] MEDS: INSULIN ASPART [NOVOLOG] 3 ML PEN SC SCH ×5 (08:10→17:57)
[2017-06-29 08:22] VITALS: BP 110/72; RESP 16
[2017-06-29] MEDS: CHOLECALCIFEROL 2,000 UNIT CAP PO SCH (08:50)
[2017-06-29] MEDS: THIAMINE 100 MG TAB PO SCH (08:50)
[2017-06-29] MEDS: GABAPENTIN 100 MG CAP PO SCH ×2 (08:50→12:49)
[2017-06-29] MEDS: NICOTINE (14 MG/24 HR) PATCH TRANSDERM SCH (08:50)
[2017-06-29] MEDS: MAGNESIUM OXIDE 400 MG TAB PO SCH ×2 (08:50→12:49)
--- NOTE | 2017-06-29 09:18 | PN ---
Date/Time of Note Date/Time of Note DATE: 06/29/17 TIME: 09:16 Assessment/Plan VTE Prophylaxis VTE Prophylaxis Intervention: SCD's Lines/Catheters IV Catheter Type (from [facility]): Saline Lock Urinary Cath still in place: No Assessment/Plan Chief Complaint/Hosp Course 1. EtOH intoxication/ withdrawal.stable. -cont B1, Pepcid. -Social service assistance appreciated 2. Alcohol induced thrombocytopenia, stable. -We will monitor 3. Chronic anemia. Stable. Will monitor 4. Hyperglycemia with DMII -Start 13 units Lantus (0.15 unit/kg) along with a premeal Aspart 4 units TID with meals. Continue with Accu-Cheks and insulin sliding scale. -Carb-controlled diet. 5. Tobacco abuse -Continue nicotine patch. Cessation advised. 6. Homelessness. DVT prophylaxis: lovenox Plan: Patient with homelessness, fall risk with poor safety judgment situation. Therefore, patient would need residential facility upon discharge. Case management following for placement. Case discussed with Dr. Ureña Problems: Subjective 24 Hr Interval Summary Free Text/Dictation Blood sugar has been high.Patient on a carb controlled diet. Exam/Review of Systems Vital Signs Vitals Vital Signs Date Time Temp Pulse Resp B/P Pulse Ox O2 Delivery O2 Flow Rate FiO2 06/29/17 08:22 98.7 94 16 110/72 95 Intake and Output 06/28/17 06/28/17 06/29/17 15:00 23:00 07:00 Intake Total 840 ml 1000 ml Balance 840 ml 1000 ml Exam Constitutional: well developed Psych: confusion, other (, poor judgement) Head: atraumatic, normocephalic Eyes: PERRL Neck: supple Respiratory: clear to auscultation Cardiovascular: nl pulses, regular rate and rhythm Gastrointestinal: non-tender, soft Genitourinary - Male: other (deferred) Musculoskeletal: muscle weakness, nl extremities to inspection Extremities: normal pulses Neurological: other (awake/orientedx3) Skin: rash or lesions Results Result Diagram: 06/27/17 0504 06/27/17 0504 Results 24 hrs Laboratory Tests Test 06/28/17 12:32 06/28/17 17:20 06/28/17 21:36 06/29/17 01:58 Bedside Glucose 197 182 221 H 172 Test 06/29/17 08:07 Bedside Glucose 136 Medications Medications Current Medications Lorazepam (Ativan) 1 mg Q6H PRN IV agitation Last administered on 06/20/17 10: 14; Admin Dose 1 MG; Start 06/19/17 at 08:30 Pantoprazole (Protonix Tab) 40 mg DAILY@06 PO Last administered on 06/29/17 05: 36; Admin Dose 40 MG; Start 06/20/17 at 06:00 Ondansetron HCl (Zofran Inj) 4 mg Q6H PRN IV NAUSEA AND/OR VOMITING; Start at 08:30 Diagnostic Test (Pha) (Accu-Chek) 1 ea 02 XX Last administered on 06/29/17 02: 04; Admin Dose 1 EA; Start 06/20/17 at 02:00 Miscellaneous Information 1 ea NOTE XX ; Start 06/19/17 at 10:30 Glucose (Glutose) 15 gm Q15M PRN PO DECREASED GLUCOSE; Start 06/19/17 at 10:30 Glucose (Glutose) 22.5 gm Q15M PRN PO DECREASED GLUCOSE; Start 06/19/17 at 10: 30 Dextrose (D50w Syringe) 25 ml Q15M PRN IV DECREASED GLUCOSE; Start 06/19/17 at 10:30 Dextrose (D50w Syringe) 50 ml Q15M PRN IV DECREASED GLUCOSE; Start 06/19/17 at 10:30 Glucagon (Glucagen) 1 mg Q15M PRN IM DECREASED GLUCOSE; Start 06/19/17 at 10:30 Glucose (Glutose) 15 gm Q15M PRN BUCCAL DECREASED GLUCOSE; Start 06/19/17 at 10 :30 Nicotine (Nicoderm 14 Mg/ 24hr) 1 patch DAILY TRANSDERM Last administered on 08:50; Admin Dose 1 PATCH; Start 06/20/17 at 09:00 Gabapentin (Neurontin) 100 mg TID PO Last administered on 06/29/17 08:50; Admin Dose 100 MG; Start 06/20/17 at 13:00 Acetaminophen (Tylenol Tab) 650 mg Q6H PRN PO PAIN AND OR ELEVATED TEMP Last administered on 06/26/17 20:38; Admin Dose 650 MG; Start 06/21/17 at 02:00 Lorazepam (Ativan) 2 mg Q2HWA PRN IM AGITATION/ANXIETY; Start 06/21/17 at 21:00 Thiamine HCl (Vitamin B1) 100 mg DAILY PO Last administered on 06/29/17 08:50; Admin Dose 100 MG; Start 06/22/17 at 15:00 Enoxaparin Sodium (Lovenox) 40 mg Q24H SC Last administered on 06/28/17 21:45; Admin Dose 40 MG; Start 06/24/17 at 21:00 Magnesium Oxide (Mag-Ox 400) 400 mg TID PO Last administered on 06/29/17 08:50 ; Admin Dose 400 MG; Start 06/26/17 at 09:00 Cholecalciferol (Vitamin D) 2,000 unit DAILY PO Last administered on 06/29/17 08:50; Admin Dose 2,000 UNIT; Start 06/26/17 at 09:00 Lorazepam (Ativan) 1 mg Q8 PRN PO agitation; Start 06/26/17 at 11:30 Naphazoline HCl (Clear Eyes / Naphcon) 2 drop TID BOTH EYES ; Start 06/29/17 at 02:01 CISCO CONTRERAS NP Jun 29, 2017 09:18 CISCO CONTRERAS NP Jun 29, 2017 09:18
[2017-06-29] MEDS: NAPHAZOLINE 0.012% 15 ML OPH BOTH EYES SCH ×2 (10:07→12:49)
[2017-06-29] MEDS ORDERED: INSULIN GLARGINE [LANtus] 3 ML PEN SC SCH (10:30)
[2017-06-29] MEDS ORDERED: POLYETHYLENE GLYCOL 17 GM PACKET PO PRN (12:30)
[2017-06-29] MEDS ORDERED: DOCUSATE SODIUM 100 MG CAP PO SCH (12:30)
[2017-06-29 13:58] VITALS: BP 107/65; RESP 16
[2017-06-29 19:46] VITALS: BP 109/65; RESP 18
--- NOTE | 2017-06-30 12:50 | DS ---
Date/Time of Note Date/Time of Note DATE: 06/30/17 TIME: 12:48 Discharge Summary Admission/Discharge Info Admit Date/Time Jun 18, 2017 at 19:16 Discharge Date/Time Jun 29, 2017 at 20:47 Discharge Diagnosis 1. Status Post EtOH intoxication/ withdrawal. 2. Alcohol induced thrombocytopenia 3. Chronic anemia. 4. Hyperglycemia with DMII. he left AMA without any diabetic medications prescriptions. 5. Tobacco abuse 6. Homelessness. Hospital Course This is a 42-year-old male with a past medical history of alcohol abuse, dizziness, depression, diabetes, who was admitted for alcohol intoxication and withdrawal. Patient was treated with banana bag and anxiolytics. Patient was provided with resources for cessation of alcohol by our social service team. She was evaluated by physical therapy and was not safe for home discharge and recommended penitentiary facility for further rehabilitation. Case management was trying to get patient to penitentiary facility. However, patient came in and wanted to take him home. She was advised on the need for further rehabilitation at an extended care facility due to his fall risk and poor safety judgment situation. The patient with homelessness situation. However, they do want to keep patient in a penitentiary facility and signed homelessness discharge papers and to patient home AGAINST MEDICAL ADVICE although he would have benefited from staying in an extended care facility for few weeks of further rehabilitation. Despite our efforts, patient had decided to leave AGAINST MEDICAL ADVICE. Patient has normal mental status and full decisional capacity. He understood her condition and the risk of leaving AMA, including but not limited to permanent disability, etc., and he had an opportunity to ask questions about her medical condition. The patient has been informed that she may return for care anytime and has been referred to her primary care provider for follow- up as soon as possible. Since patient was left AMA, no prescription drugs was given. Discussed with [facility] Thiamine* (Thiamine*) 100 Mg Tablet, 100 MG PO DAILY for 30 Days, #30 BOX 2 Refills Prov:EDGAR MALLOY MD 06/21/17 Potassium Chloride (Potassium Chloride) 20 Meq Packet, 40 MEQ PO DAILY for 5 Days, #5 PACKET Prov:EDGAR MALLOY MD 06/21/17 Gabapentin* (Gabapentin*) 100 Mg Capsule, 100 MG PO TID for 10 Days, #30 CAP 1 Refill leg foot pains Prov:EDGAR MALLOY MD 06/21/17 Primary Care Provider Care Physician No Primary Pending Labs Laboratory Tests Test 06/29/17 17:32 Bedside Glucose 134mg/dL (70-220) CISCO CONTRERAS NP Jun 30, 2017 12:50
== END 2017-06-29 20:47 | disposition left against medical advice (07) | DRG 894 ==
LOC: E/R 13:00 → EDBD 13:00 → MS3 19:16 → EDBD 19:16 → TEL 06-19 22:50 → MS2 06-21 23:35
PROVIDERS: ADMIT Internal Medicine; ATTEND Internal Medicine
DX: F10.239 Alcohol dependence with withdrawal, unspecified (principal); D61.818 Other pancytopenia; E87.0 Hyperosmolality and hypernatremia; E11.65 Type 2 diabetes mellitus with hyperglycemia; E88.81 Metabolic syndrome and other insulin resistance; F10.229 Alcohol dependence with intoxication, unspecified; Y90.8 Blood alcohol level of 240 mg/100 ml or more; Z72.0 Tobacco use; I10 Essential (primary) hypertension; E78.5 Hyperlipidemia, unspecified; M25.532 Pain in left wrist; M79.672 Pain in left foot; M79.671 Pain in right foot; R56.9 Unspecified convulsions; G31.2 Degeneration of nervous system due to alcohol; Z59.0 Homelessness
CPT/HCPCS: 36415; 70450; 70551; 71010; 72125; 80048; 80053; 80061; 80306; 80307; 81003; 82306; 82607; 82746; 82962; 83036; 83605; 83735; 84100; 84484; 85025; 85610; 85730; 86592; 86704; 86706; 86803; 93005; 96374; 96375; 96376; 97110; 97116; 97161; 97530; J1650; J1815; J2060; J2405; J3411; J3475; J7030